=== PATIENT | male | born 1935 | race Caucasian/White ===

== ENCOUNTER → 2023-02-05 | Outpatient (CLI) | payer MEDICARE ==
[2023-02-05 15:20] LABS: Basophils # (auto) 0.1 10 ^3/uL (0-0.2); Basophils % (auto) 1.1 % (0.0-2.0); Eosinophils # (auto) 0.4 10 ^3/uL (0-0.8); Eosinophils % (auto) 3.3 % (0.0-7.0); Hematocrit 50.2 % (41.0-53.0); Hemoglobin 16.9 g/dL (13.5-17.5); Lymphocytes # (auto) 4.1 10 ^3/uL (0.4-5.4); Lymphocytes % (auto) 37.7 % (10.0-50.0); Mean Corpuscular Hemoglobin 30.3 pg (28.0-32.0); Mean Corpuscular Hgb Conc. 33.7 g/dL (32.0-36.0); Mean Corpuscular Volume 89.8 fL (80.0-100.0); Monocytes # (auto) 0.6 10 ^3/uL (0-1.3); Neutrophils # (auto) 5.6 10 ^3/uL (1.6-8.6); Neutrophils % (auto) 51.9 % (37.0-80.0); Nucleated Red Blood Cells % 0.2 %; Red Blood Cells 5.59 10^6/uL (4.5-5.90); Red Cell Distribution Width 14.2 % (11.8-14.3); White Blood Cell 10.8 10^3/uL (4.4-10.8)
[2023-02-05 15:41] LABS: Albumin 3.8 g/dL (3.4-5.0); Calcium 9.4 mg/dL (8.5-10.1)
[2023-02-05 15:46] LABS: BUN/Creatinine Ratio 14.1 (10.0-20.0); Bilirubin, Total 1.2 mg/dL (0.2-1.0); Total Protein 8.4 g/dL (6.4-8.2)
== END | disposition home or self-care (01) ==
LOC: LAB 14:41
PROVIDERS: ATTEND Internal Medicine
DX: N18.31 Chronic kidney disease, stage 3a (principal); E66.01 Morbid (severe) obesity due to excess calories; N40.0 Benign prostatic hyperplasia without lower urinary tract symptoms; I12.9 Hypertensive chronic kidney disease with stage 1 through stage 4 chronic kidney disease, or unspecified chronic kidney disease
CPT/HCPCS: 36415; 80053; 80061; 84153; 84154; 84443; 85025

== ENCOUNTER 2023-03-24 10:36 | Inpatient (IN) | payer OTHER ==
[~2023-03-24] VITALS: Ht 167.6 cm; Wt 79.6 kg
[2023-03-24 11:08] LABS: Basophils # (auto) 0.1 10 ^3/uL (0-0.2); Basophils % (auto) 0.9 % (0.0-2.0); Eosinophils # (auto) 0.4 10 ^3/uL (0-0.8); Hematocrit 48.1 % (41.0-53.0); Hemoglobin 16.3 g/dL (13.5-17.5); Lymphocytes # (auto) 2.8 10 ^3/uL (0.4-5.4); Lymphocytes % (auto) 22.9 % (10.0-50.0); Mean Corpuscular Hemoglobin 30.2 pg (28.0-32.0); Mean Corpuscular Hgb Conc. 33.9 g/dL (32.0-36.0); Mean Corpuscular Volume 89.2 fL (80.0-100.0); Monocytes # (auto) 1.1 10 ^3/uL (0-1.3); Neutrophils # (auto) 7.9 10 ^3/uL (1.6-8.6); Neutrophils % (auto) 64.2 % (37.0-80.0); Nucleated Red Blood Cells % 0.2 %; Red Blood Cells 5.39 10^6/uL (4.5-5.90); Red Cell Distribution Width 13.5 % (11.8-14.3); White Blood Cell 12.3 10^3/uL (4.4-10.8)
[2023-03-24 11:20] LABS: Albumin 3.4 g/dL (3.4-5.0); Calcium 8.8 mg/dL (8.5-10.1); Magnesium 2.5 mg/dL (1.6-2.6)
[2023-03-24 11:23] LABS: BUN/Creatinine Ratio 11.8 (10.0-20.0); Bilirubin, Total 0.9 mg/dL (0.2-1.0); Total Protein 7.4 g/dL (6.4-8.2)
[2023-03-24 11:51] LABS: INR 1.12 (0.9-1.15); Partial Thromboplastin Time 30.3 sec (24.6-33.4)
[2023-03-24] MEDS ORDERED: FUROSEMIDE 40 MG/4 ML VIAL IV ONE (13:15)
[2023-03-24] MEDS ORDERED: CLIN-203 PO (13:39)
[2023-03-24] MEDS ORDERED: MAX5OPS EACHEYE (13:39)
[2023-03-24] MEDS ORDERED: FUR20T PO (13:39)
[2023-03-24] MEDS ORDERED: NITROGLYCERIN 0.4 MG SL TAB SL PRN (14:00)
[2023-03-24] MEDS ORDERED: MORPHINE SULFATE INJ 2 MG/ml SYRG IV PRN (14:00)
[2023-03-24] MEDS ORDERED: ASPirin 325 MG TAB PO ONE (14:00)
[2023-03-24 15:05] LABS: Cholesterol 101 mg/dL (< 200); HDL Cholesterol 31 mg/dL (40-59); LDL Cholesterol 68 mg/dL (< 100); Triglycerides 60 mg/dL (< 150)
[2023-03-24] MEDS: ATORVASTATIN 20 MG TAB PO SCH (22:00)
[2023-03-24 22:22] VITALS: BP 106/60
[2023-03-25] VITALS (12 sets, daily range): BP systolic 101–116; BP diastolic 57–68
[2023-03-25 05:54] LABS: Basophils # (auto) 0.1 10 ^3/uL (0-0.2); Basophils % (auto) 0.6 % (0.0-2.0); Eosinophils # (auto) 0.3 10 ^3/uL (0-0.8); Eosinophils % (auto) 2.2 % (0.0-7.0); Hematocrit 42.4 % (41.0-53.0); Hemoglobin 14.5 g/dL (13.5-17.5); Lymphocytes # (auto) 1.2 10 ^3/uL (0.4-5.4); Lymphocytes % (auto) 9.6 % (10.0-50.0); Mean Corpuscular Hemoglobin 30.4 pg (28.0-32.0); Mean Corpuscular Hgb Conc. 34.3 g/dL (32.0-36.0); Mean Corpuscular Volume 88.5 fL (80.0-100.0); Monocytes # (auto) 0.9 10 ^3/uL (0-1.3); Monocytes % (auto) 7.3 % (0.0-12.0); Neutrophils # (auto) 9.7 10 ^3/uL (1.6-8.6); Neutrophils % (auto) 80.3 % (37.0-80.0); Nucleated Red Blood Cells % 0.1 %; Red Blood Cells 4.79 10^6/uL (4.5-5.90); Red Cell Distribution Width 13.5 % (11.8-14.3); White Blood Cell 12.1 10^3/uL (4.4-10.8)
[2023-03-25 06:10] LABS: Albumin 2.8 g/dL (3.4-5.0); Calcium 8.3 mg/dL (8.5-10.1); Potassium 4.6 mmol/L (3.5-5.1)
[2023-03-25 06:15] LABS: BUN/Creatinine Ratio 19.2 (10.0-20.0); Total Protein 6.3 g/dL (6.4-8.2)
[2023-03-25] MEDS ORDERED: ADENOSINE 69 MG in GIVE UN-DILUTED 0 ML IV STA (08:25)
[2023-03-25] MEDS ORDERED: IOHEXOL 350 MG/ML 100ML IJ ONE (09:33)
[2023-03-25] MEDS ORDERED: PIPERACILLIN-TAZOB 3.375GM 100 ML IV ONE (10:45)
[2023-03-25] MEDS ORDERED: methylPREDNISolone SOD SUCC 40 MG/ML VL IM ONE (10:45)
[2023-03-25] MEDS: ENOXAPARIN SOD 40 MG/0.4 ML SYRINGE SC SCH (11:14)
[2023-03-25] MEDS: ASPirin 81 mg TAB PO SCH (11:14)
[2023-03-25] MEDS: FUROSEMIDE 20 MG/2 ML VIAL IV SCH ×2 (11:17→16:08)
[2023-03-25] MEDS: PIPERACILLIN-TAZOB 3.375GM 100 ML IV SCH (16:08)
[2023-03-25] MEDS: ATORVASTATIN 20 MG TAB PO SCH (21:31)
[2023-03-26] VITALS (19 sets, daily range): BP systolic 96–119; BP diastolic 47–69
[2023-03-26] MEDS: PIPERACILLIN-TAZOB 3.375GM 100 ML IV SCH ×3 (02:26→19:55)
[2023-03-26] MEDS: FUROSEMIDE 20 MG/2 ML VIAL IV SCH ×2 (05:38→18:01)
[2023-03-26 07:07] LABS: Urine Bacteria NONE SEEN /hpf (None Seen); Urine Blood 3+ /uL (Negative); Urine Specific Gravity 1.008 (1.001-1.035); Urine WBC 2 /hpf (0 - 3)
[2023-03-26] MEDS: methylPREDNISolone SOD SUCC 40 MG/ML VL IV SCH (10:00)
[2023-03-26] MEDS ORDERED: guaiFENesin-DM 100/10mg/5ml SYR PO ONE (10:15)
[2023-03-26] MEDS ORDERED: LIDOCAINE 2% JELLY 11ml (GLYDO) UR ONE (11:45)
[2023-03-26] MEDS: ASPirin 81 mg TAB PO SCH (12:02)
[2023-03-26] MEDS: ENOXAPARIN SOD 40 MG/0.4 ML SYRINGE SC SCH (12:03)
[2023-03-26] MEDS: PHENAZOPYRIDINE HCL 100 MG TAB PO SCH (18:00)
[2023-03-26] MEDS: ATORVASTATIN 20 MG TAB PO SCH (21:40)
[2023-03-27] VITALS (25 sets, daily range): BP systolic 92–120; BP diastolic 46–73
[2023-03-27] MEDS: PIPERACILLIN-TAZOB 3.375GM 100 ML IV SCH (03:18)
[2023-03-27 04:51] LABS: Basophils # (auto) 0.1 10 ^3/uL (0-0.2); Basophils % (auto) 0.7 % (0.0-2.0); Eosinophils # (auto) 0.3 10 ^3/uL (0-0.8); Eosinophils % (auto) 1.7 % (0.0-7.0); Hematocrit 44.4 % (41.0-53.0); Hemoglobin 15.4 g/dL (13.5-17.5); Lymphocytes # (auto) 2.4 10 ^3/uL (0.4-5.4); Lymphocytes % (auto) 15.8 % (10.0-50.0); Mean Corpuscular Hemoglobin 30.4 pg (28.0-32.0); Mean Corpuscular Hgb Conc. 34.7 g/dL (32.0-36.0); Mean Corpuscular Volume 87.6 fL (80.0-100.0); Monocytes # (auto) 1.2 10 ^3/uL (0-1.3); Monocytes % (auto) 8.1 % (0.0-12.0); Neutrophils # (auto) 11.3 10 ^3/uL (1.6-8.6); Neutrophils % (auto) 73.7 % (37.0-80.0); Nucleated Red Blood Cells % 0.1 %; Red Blood Cells 5.07 10^6/uL (4.5-5.90); Red Cell Distribution Width 13.7 % (11.8-14.3); White Blood Cell 15.4 10^3/uL (4.4-10.8)
[2023-03-27 05:10] LABS: BUN/Creatinine Ratio 27.6 (10.0-20.0); Calcium 8.8 mg/dL (8.5-10.1); Potassium 3.4 mmol/L (3.5-5.1)
[2023-03-27] MEDS: FUROSEMIDE 20 MG/2 ML VIAL IV SCH ×2 (05:15→18:52)
[2023-03-27] MEDS: guaiFENesin-DM 100/10mg/5ml SYR PO PRN (05:20)
[2023-03-27] MEDS: ENOXAPARIN SOD 40 MG/0.4 ML SYRINGE SC SCH (09:02)
[2023-03-27] MEDS: PHENAZOPYRIDINE HCL 100 MG TAB PO SCH ×3 (09:03→18:51)
[2023-03-27] MEDS: ASPirin 81 mg TAB PO SCH (09:03)
[2023-03-27] MEDS: methylPREDNISolone SOD SUCC 40 MG/ML VL IV SCH (09:40)
[2023-03-27] MEDS ORDERED: POTASSIUM EFFERVESENT TAB 25 MEQ PO ONE (10:15)
[2023-03-27] MEDS: ALBUTEROL SULF 2.5 MG/0.5ML(0.5%) NEB SOLN NEB PRN (12:21)
[2023-03-27] MEDS: MEROPENEM 1GM IVPB 100 ML IV SCH ×2 (14:26→21:06)
[2023-03-27] MEDS: ATORVASTATIN 20 MG TAB PO SCH (21:03)
[2023-03-27] MEDS: LINEZOLID 600MG/300ML 300 ML IV SCH (21:11)
[2023-03-28] VITALS (25 sets, daily range): BP systolic 95–135; BP diastolic 52–77
[2023-03-28 05:01] LABS: Basophils # (auto) 0 10 ^3/uL (0-0.2); Basophils % (auto) 0.2 % (0.0-2.0); Eosinophils # (auto) 0 10 ^3/uL (0-0.8); Eosinophils % (auto) 0.2 % (0.0-7.0); Hematocrit 43.5 % (41.0-53.0); Hemoglobin 15.1 g/dL (13.5-17.5); Lymphocytes # (auto) 2.7 10 ^3/uL (0.4-5.4); Lymphocytes % (auto) 18.7 % (10.0-50.0); Mean Corpuscular Hemoglobin 30.7 pg (28.0-32.0); Mean Corpuscular Hgb Conc. 34.8 g/dL (32.0-36.0); Mean Corpuscular Volume 88.1 fL (80.0-100.0); Monocytes # (auto) 1.3 10 ^3/uL (0-1.3); Monocytes % (auto) 8.7 % (0.0-12.0); Neutrophils # (auto) 10.6 10 ^3/uL (1.6-8.6); Neutrophils % (auto) 72.2 % (37.0-80.0); Nucleated Red Blood Cells % 0.1 %; Red Blood Cells 4.94 10^6/uL (4.5-5.90); Red Cell Distribution Width 13.5 % (11.8-14.3); White Blood Cell 14.7 10^3/uL (4.4-10.8)
[2023-03-28 05:19] LABS: BUN/Creatinine Ratio 25.6 (10.0-20.0); Calcium 8.6 mg/dL (8.5-10.1); Potassium 4.2 mmol/L (3.5-5.1)
[2023-03-28] MEDS: MEROPENEM 1GM IVPB 100 ML IV SCH ×3 (05:57→22:31)
[2023-03-28] MEDS: FUROSEMIDE 20 MG/2 ML VIAL IV SCH ×2 (05:58→17:20)
[2023-03-28] MEDS: PHENAZOPYRIDINE HCL 100 MG TAB PO SCH ×3 (08:47→17:20)
[2023-03-28] MEDS: LINEZOLID 600MG/300ML 300 ML IV SCH ×2 (08:47→22:31)
[2023-03-28] MEDS: ASPirin 81 mg TAB PO SCH (08:47)
[2023-03-28] MEDS: ENOXAPARIN SOD 40 MG/0.4 ML SYRINGE SC SCH (08:47)
[2023-03-28] MEDS: methylPREDNISolone SOD SUCC 40 MG/ML VL IV SCH (08:47)
[2023-03-28] MEDS: ALBUTEROL SULF 2.5 MG/0.5ML(0.5%) NEB SOLN NEB PRN (12:40)
[2023-03-29] VITALS (22 sets, daily range): BP systolic 96–133; BP diastolic 46–74
[2023-03-29] MEDS: ATORVASTATIN 20 MG TAB PO SCH ×2 (00:04→22:15)
[2023-03-29 05:26] LABS: Basophils # (auto) 0.1 10 ^3/uL (0-0.2); Basophils % (auto) 0.5 % (0.0-2.0); Eosinophils # (auto) 0 10 ^3/uL (0-0.8); Eosinophils % (auto) 0.2 % (0.0-7.0); Hemoglobin 15.9 g/dL (13.5-17.5); Lymphocytes # (auto) 2.9 10 ^3/uL (0.4-5.4); Lymphocytes % (auto) 17.7 % (10.0-50.0); Mean Corpuscular Hemoglobin 30.8 pg (28.0-32.0); Mean Corpuscular Hgb Conc. 35.3 g/dL (32.0-36.0); Mean Corpuscular Volume 87.4 fL (80.0-100.0); Monocytes # (auto) 1.2 10 ^3/uL (0-1.3); Monocytes % (auto) 7.5 % (0.0-12.0); Neutrophils # (auto) 12.2 10 ^3/uL (1.6-8.6); Neutrophils % (auto) 74.1 % (37.0-80.0); Nucleated Red Blood Cells % 0.1 %; Red Blood Cells 5.14 10^6/uL (4.5-5.90); Red Cell Distribution Width 13.5 % (11.8-14.3); White Blood Cell 16.5 10^3/uL (4.4-10.8)
[2023-03-29 05:44] LABS: BUN/Creatinine Ratio 29.7 (10.0-20.0); Calcium 8.9 mg/dL (8.5-10.1); Potassium 4.1 mmol/L (3.5-5.1)
[2023-03-29] MEDS: FUROSEMIDE 20 MG/2 ML VIAL IV SCH ×2 (07:55→17:58)
[2023-03-29] MEDS: MEROPENEM 1GM IVPB 100 ML IV SCH ×2 (07:55→14:05)
[2023-03-29] MEDS: ENOXAPARIN SOD 40 MG/0.4 ML SYRINGE SC SCH (08:38)
[2023-03-29] MEDS: LINEZOLID 600MG/300ML 300 ML IV SCH ×2 (08:39→22:12)
[2023-03-29] MEDS: PHENAZOPYRIDINE HCL 100 MG TAB PO SCH ×3 (08:39→17:58)
[2023-03-29] MEDS: ASPirin 81 mg TAB PO SCH (08:39)
[2023-03-29] MEDS: methylPREDNISolone SOD SUCC 40 MG/ML VL IV SCH (09:36)
[2023-03-29] MEDS ORDERED: LACTULOSE 20Gm/30ML SOLN PO PRN (13:00)
[2023-03-29] MEDS: DOCUSATE SOD 100 MG CAP PO PRN (14:11)
[2023-03-30] VITALS (9 sets, daily range): BP systolic 99–121; BP diastolic 61–71
[2023-03-30] MEDS: MEROPENEM 1GM IVPB 100 ML IV SCH ×4 (00:38→22:28)
[2023-03-30 05:01] LABS: Basophils # (auto) 0.1 10 ^3/uL (0-0.2); Basophils % (auto) 0.4 % (0.0-2.0); Eosinophils # (auto) 0 10 ^3/uL (0-0.8); Eosinophils % (auto) 0.3 % (0.0-7.0); Hematocrit 43.8 % (41.0-53.0); Hemoglobin 15.1 g/dL (13.5-17.5); Lymphocytes % (auto) 16.2 % (10.0-50.0); Mean Corpuscular Hemoglobin 30.4 pg (28.0-32.0); Mean Corpuscular Hgb Conc. 34.5 g/dL (32.0-36.0); Mean Corpuscular Volume 88.2 fL (80.0-100.0); Monocytes # (auto) 1.3 10 ^3/uL (0-1.3); Monocytes % (auto) 6.9 % (0.0-12.0); Neutrophils # (auto) 13.9 10 ^3/uL (1.6-8.6); Neutrophils % (auto) 76.2 % (37.0-80.0); Nucleated Red Blood Cells % 0.1 %; Red Blood Cells 4.97 10^6/uL (4.5-5.90); Red Cell Distribution Width 13.1 % (11.8-14.3); White Blood Cell 18.2 10^3/uL (4.4-10.8)
[2023-03-30 05:08] LABS: Albumin 2.6 g/dL (3.4-5.0); Magnesium 2.5 mg/dL (1.6-2.6); Potassium 3.9 mmol/L (3.5-5.1)
[2023-03-30 05:11] LABS: BUN/Creatinine Ratio 28.9 (10.0-20.0); Bilirubin, Total 0.5 mg/dL (0.2-1.0); Total Protein 6.9 g/dL (6.4-8.2)
[2023-03-30] MEDS: FUROSEMIDE 20 MG/2 ML VIAL IV SCH ×2 (05:20→18:44)
[2023-03-30] MEDS: PHENAZOPYRIDINE HCL 100 MG TAB PO SCH ×3 (09:28→18:45)
[2023-03-30] MEDS: ENOXAPARIN SOD 40 MG/0.4 ML SYRINGE SC SCH (09:28)
[2023-03-30] MEDS: methylPREDNISolone SOD SUCC 40 MG/ML VL IV SCH (09:29)
[2023-03-30] MEDS: LINEZOLID 600MG/300ML 300 ML IV SCH ×2 (09:29→22:28)
[2023-03-30] MEDS: ASPirin 81 mg TAB PO SCH (09:29)
[2023-03-30] MEDS: ACETYLCYSTEINE 10 %(100MG/ML) SOL 4ML NEB SCH ×2 (14:26→22:34)
[2023-03-30] MEDS: ALBUTEROL SULF 2.5 MG/0.5ML(0.5%) NEB SOLN NEB PRN ×2 (14:26→22:34)
[2023-03-30] MEDS: IPRATROPIUM BROM 0.5 MG/2.5ML INH SOL NEB PRN ×2 (14:26→22:34)
[2023-03-30] MEDS ORDERED: ALBUMIN 25% 100 ML IV ONE (21:00)
[2023-03-30] MEDS: ATORVASTATIN 20 MG TAB PO SCH (22:27)
[2023-03-31] MEDS: FUROSEMIDE 20 MG/2 ML VIAL IV SCH ×2 (05:46→18:35)
[2023-03-31] MEDS: MEROPENEM 1GM IVPB 100 ML IV SCH ×2 (05:46→14:52)
[2023-03-31 06:00] VITALS: BP 102/58
[2023-03-31] MEDS: ALBUTEROL SULF 2.5 MG/0.5ML(0.5%) NEB SOLN NEB PRN ×3 (07:03→22:11)
[2023-03-31] MEDS: IPRATROPIUM BROM 0.5 MG/2.5ML INH SOL NEB PRN ×3 (07:03→22:11)
[2023-03-31] MEDS: ACETYLCYSTEINE 10 %(100MG/ML) SOL 4ML NEB SCH ×3 (07:03→22:11)
[2023-03-31 09:00] VITALS: BP 110/58
[2023-03-31] MEDS: ASPirin 81 mg TAB PO SCH (10:06)
[2023-03-31] MEDS: PHENAZOPYRIDINE HCL 100 MG TAB PO SCH ×3 (10:06→18:35)
[2023-03-31] MEDS: LINEZOLID 600MG/300ML 300 ML IV SCH ×2 (10:06→21:59)
[2023-03-31] MEDS: methylPREDNISolone SOD SUCC 40 MG/ML VL IV SCH (10:07)
[2023-03-31] MEDS: ENOXAPARIN SOD 40 MG/0.4 ML SYRINGE SC SCH (10:07)
[2023-03-31 13:02] VITALS: BP 111/58
[2023-03-31 17:00] VITALS: BP 115/68
[2023-03-31] MEDS: ATORVASTATIN 20 MG TAB PO SCH (21:58)
[2023-03-31 22:00] VITALS: BP 116/61
[2023-04-01] MEDS: MEROPENEM 1GM IVPB 100 ML IV SCH ×4 (01:08→23:45)
[2023-04-01] MEDS: guaiFENesin-DM 100/10mg/5ml SYR PO PRN ×3 (01:14→21:38)
[2023-04-01 05:00] VITALS: BP 123/73
[2023-04-01] MEDS: FUROSEMIDE 20 MG/2 ML VIAL IV SCH ×2 (05:36→17:49)
[2023-04-01 06:13] LABS: Basophils # (auto) 0 10 ^3/uL (0-0.2); Basophils % (auto) 0.1 % (0.0-2.0); Eosinophils # (auto) 0 10 ^3/uL (0-0.8); Eosinophils % (auto) 0.1 % (0.0-7.0); Hematocrit 42.1 % (41.0-53.0); Hemoglobin 14.5 g/dL (13.5-17.5); Lymphocytes # (auto) 2.2 10 ^3/uL (0.4-5.4); Lymphocytes % (auto) 12.3 % (10.0-50.0); Mean Corpuscular Hemoglobin 29.8 pg (28.0-32.0); Mean Corpuscular Hgb Conc. 34.4 g/dL (32.0-36.0); Mean Corpuscular Volume 86.7 fL (80.0-100.0); Monocytes # (auto) 1.2 10 ^3/uL (0-1.3); Monocytes % (auto) 6.9 % (0.0-12.0); Neutrophils # (auto) 14.4 10 ^3/uL (1.6-8.6); Neutrophils % (auto) 80.6 % (37.0-80.0); Nucleated Red Blood Cells % 0.4 %; Red Blood Cells 4.86 10^6/uL (4.5-5.90); Red Cell Distribution Width 13.3 % (11.8-14.3); White Blood Cell 17.8 10^3/uL (4.4-10.8)
[2023-04-01 06:30] LABS: BUN/Creatinine Ratio 30.3 (10.0-20.0); Calcium 8.7 mg/dL (8.5-10.1); Potassium 3.7 mmol/L (3.5-5.1)
[2023-04-01] MEDS: IPRATROPIUM BROM 0.5 MG/2.5ML INH SOL NEB PRN ×3 (06:42→21:54)
[2023-04-01] MEDS: ALBUTEROL SULF 2.5 MG/0.5ML(0.5%) NEB SOLN NEB PRN ×3 (06:42→21:54)
[2023-04-01] MEDS: ACETYLCYSTEINE 10 %(100MG/ML) SOL 4ML NEB SCH ×3 (06:43→21:54)
[2023-04-01 09:00] VITALS: BP 116/69
[2023-04-01] MEDS: ASPirin 81 mg TAB PO SCH (10:15)
[2023-04-01] MEDS: methylPREDNISolone SOD SUCC 40 MG/ML VL IV SCH (10:15)
[2023-04-01] MEDS: ENOXAPARIN SOD 40 MG/0.4 ML SYRINGE SC SCH (10:17)
[2023-04-01] MEDS: LINEZOLID 600MG/300ML 300 ML IV SCH ×2 (10:17→21:32)
[2023-04-01] MEDS: PHENAZOPYRIDINE HCL 100 MG TAB PO SCH ×3 (10:23→18:00)
[2023-04-01] MEDS: ACETAMINOPHEN 325 MG TAB PO PRN (12:00)
[2023-04-01 13:00] VITALS: BP 123/67
[2023-04-01 17:00] VITALS: BP 122/71
[2023-04-01] MEDS: ATORVASTATIN 20 MG TAB PO SCH (21:32)
[2023-04-01 22:00] VITALS: BP 137/72
[2023-04-02 05:00] VITALS: BP 129/63
[2023-04-02] MEDS: FUROSEMIDE 20 MG/2 ML VIAL IV SCH ×2 (06:11→18:16)
[2023-04-02] MEDS: ACETYLCYSTEINE 10 %(100MG/ML) SOL 4ML NEB SCH ×3 (07:26→22:17)
[2023-04-02] MEDS: IPRATROPIUM BROM 0.5 MG/2.5ML INH SOL NEB PRN ×3 (07:26→22:17)
[2023-04-02] MEDS: ALBUTEROL SULF 2.5 MG/0.5ML(0.5%) NEB SOLN NEB PRN ×3 (07:26→22:17)
[2023-04-02] MEDS: MEROPENEM 1GM IVPB 100 ML IV SCH ×3 (07:58→23:51)
[2023-04-02] MEDS: PHENAZOPYRIDINE HCL 100 MG TAB PO SCH ×3 (08:00→18:11)
[2023-04-02] MEDS: ACETAMINOPHEN 325 MG TAB PO PRN ×2 (08:08→21:17)
[2023-04-02 09:00] VITALS: BP 122/67
[2023-04-02] MEDS: methylPREDNISolone SOD SUCC 40 MG/ML VL IV SCH (10:09)
[2023-04-02] MEDS: ASPirin 81 mg TAB PO SCH (10:10)
[2023-04-02] MEDS: ENOXAPARIN SOD 40 MG/0.4 ML SYRINGE SC SCH (10:10)
[2023-04-02 10:39] VITALS: BP 122/67
[2023-04-02] MEDS: LINEZOLID 600MG/300ML 300 ML IV SCH ×2 (11:00→21:17)
[2023-04-02 13:00] VITALS: BP 119/52
[2023-04-02 17:00] VITALS: BP 112/66
[2023-04-02] MEDS: guaiFENesin-DM 100/10mg/5ml SYR PO PRN (21:16)
[2023-04-02] MEDS: ATORVASTATIN 20 MG TAB PO SCH (21:17)
[2023-04-02 22:00] VITALS: BP 113/69
[2023-04-03] MEDS: guaiFENesin-DM 100/10mg/5ml SYR PO PRN (04:22)
[2023-04-03 05:00] VITALS: BP 127/86
[2023-04-03] MEDS: FUROSEMIDE 20 MG/2 ML VIAL IV SCH ×2 (06:09→17:47)
[2023-04-03] MEDS: IPRATROPIUM BROM 0.5 MG/2.5ML INH SOL NEB PRN ×3 (06:45→19:41)
[2023-04-03] MEDS: ACETYLCYSTEINE 10 %(100MG/ML) SOL 4ML NEB SCH ×3 (06:45→19:41)
[2023-04-03] MEDS: ALBUTEROL SULF 2.5 MG/0.5ML(0.5%) NEB SOLN NEB PRN ×3 (06:45→19:41)
[2023-04-03 08:45] VITALS: BP 122/59
[2023-04-03] MEDS: ENOXAPARIN SOD 40 MG/0.4 ML SYRINGE SC SCH (08:51)
[2023-04-03] MEDS: PHENAZOPYRIDINE HCL 100 MG TAB PO SCH ×3 (08:51→17:48)
[2023-04-03] MEDS: ASPirin 81 mg TAB PO SCH (08:51)
[2023-04-03] MEDS: methylPREDNISolone SOD SUCC 40 MG/ML VL IV SCH (08:51)
[2023-04-03] MEDS: MEROPENEM 1GM IVPB 100 ML IV SCH ×2 (08:52→16:43)
[2023-04-03] MEDS: LINEZOLID 600MG/300ML 300 ML IV SCH ×2 (12:14→21:34)
[2023-04-03 13:00] VITALS: BP 128/72
[2023-04-03 17:11] VITALS: BP 120/67
[2023-04-03] MEDS: ATORVASTATIN 20 MG TAB PO SCH (21:34)
[2023-04-03 22:00] VITALS: BP 111/71
[2023-04-03] MEDS: ACETAMINOPHEN 325 MG TAB PO PRN (22:51)
[2023-04-04] MEDS: MEROPENEM 1GM IVPB 100 ML IV SCH ×3 (00:08→17:14)
[2023-04-04 04:55] VITALS: BP 102/52
[2023-04-04 05:40] LABS: Basophils # (auto) 0 10 ^3/uL (0-0.2); Basophils % (auto) 0.1 % (0.0-2.0); Eosinophils # (auto) 0 10 ^3/uL (0-0.8); Eosinophils % (auto) 0.2 % (0.0-7.0); Hematocrit 42.7 % (41.0-53.0); Hemoglobin 14.6 g/dL (13.5-17.5); Lymphocytes # (auto) 2.6 10 ^3/uL (0.4-5.4); Lymphocytes % (auto) 14.4 % (10.0-50.0); Mean Corpuscular Hemoglobin 29.9 pg (28.0-32.0); Mean Corpuscular Hgb Conc. 34.3 g/dL (32.0-36.0); Mean Corpuscular Volume 87.3 fL (80.0-100.0); Monocytes # (auto) 1.2 10 ^3/uL (0-1.3); Monocytes % (auto) 6.8 % (0.0-12.0); Neutrophils # (auto) 14.2 10 ^3/uL (1.6-8.6); Neutrophils % (auto) 78.5 % (37.0-80.0); Red Blood Cells 4.89 10^6/uL (4.5-5.90); Red Cell Distribution Width 13.3 % (11.8-14.3)
[2023-04-04 06:00] LABS: BUN/Creatinine Ratio 33.3 (10.0-20.0); Calcium 8.5 mg/dL (8.5-10.1); Potassium 4.4 mmol/L (3.5-5.1)
[2023-04-04] MEDS: FUROSEMIDE 20 MG/2 ML VIAL IV SCH ×2 (06:04→18:14)
[2023-04-04] MEDS: ACETAMINOPHEN 325 MG TAB PO PRN (06:09)
[2023-04-04] MEDS: DOCUSATE SOD 100 MG CAP PO PRN (06:09)
[2023-04-04] MEDS: IPRATROPIUM BROM 0.5 MG/2.5ML INH SOL NEB PRN (07:28)
[2023-04-04] MEDS: ALBUTEROL SULF 2.5 MG/0.5ML(0.5%) NEB SOLN NEB PRN (07:28)
[2023-04-04] MEDS: ACETYLCYSTEINE 10 %(100MG/ML) SOL 4ML NEB SCH (07:28)
[2023-04-04] MEDS: ENOXAPARIN SOD 40 MG/0.4 ML SYRINGE SC SCH (08:25)
[2023-04-04] MEDS: PHENAZOPYRIDINE HCL 100 MG TAB PO SCH ×3 (08:25→18:13)
[2023-04-04] MEDS: ASPirin 81 mg TAB PO SCH (08:25)
[2023-04-04] MEDS: methylPREDNISolone SOD SUCC 40 MG/ML VL IV SCH (08:25)
[2023-04-04 09:00] VITALS: BP 117/66
[2023-04-04] MEDS ORDERED: LEVO750T40 PO (10:34)
[2023-04-04] MEDS ORDERED: ATOR20TA50 PO (10:34)
[2023-04-04] MEDS ORDERED: PRED20TA2 PO (10:34)
[2023-04-04] MEDS ORDERED: ASPI-325 PO (10:34)
[2023-04-04 13:00] VITALS: BP 131/68
[2023-04-04] MEDS: LINEZOLID 600MG/300ML 300 ML IV SCH (13:40)
[2023-04-04 17:00] VITALS: BP 116/55
[2023-04-04 17:59] VITALS: BP 116/55
== END 2023-04-04 20:35 | disposition home health service (06) | DRG 193 ==
LOC: ER 10:36 → TELE 13:58 → TELE-WESTW 23:19 → DOU IN ICU 03-25 12:46 → TELE-EAST 03-30 06:11
PROVIDERS: ADMIT Nurse Practitioner Family; ATTEND Internal Medicine Pulmonary Disease
PROC: 05HB33Z Insertion of Infusion Device into Right Basilic Vein, Percutaneous Approach (ICD-10-PCS; principal; 2023-03-25)
PROC: B54MZZA Ultrasonography of Right Upper Extremity Veins, Guidance (ICD-10-PCS; 2023-03-25)
DX: J18.9 Pneumonia, unspecified organism (principal); I50.33 Acute on chronic diastolic (congestive) heart failure; J96.01 Acute respiratory failure with hypoxia; J47.1 Bronchiectasis with (acute) exacerbation; J47.0 Bronchiectasis with acute lower respiratory infection; E66.9 Obesity, unspecified; Z20.822 Contact with and (suspected) exposure to COVID-19; I27.20 Pulmonary hypertension, unspecified; I20.9 Angina pectoris, unspecified; Z88.1 Allergy status to other antibiotic agents; Z87.891 Personal history of nicotine dependence; Z88.8 Allergy status to other drugs, medicaments and biological substances; Z68.29 Body mass index [BMI] 29.0-29.9, adult
CPT/HCPCS: 36415; 36600; 71045; 71250; 71275; 80048; 80053; 80061; 81001; 82805; 83735; 83880; 84443; 84484; 85025; 85379; 85610; 85730; 87040; 87070; 87077; 87081; 87186; 87205; 87804; 93005; 93306; 93970; 94640; 97110; 97116; 97163; 97530; G0378; J0153; J2185; J2543; P9047

== ENCOUNTER → 2023-06-11 | Outpatient (CLI) | payer OTHER ==
[~2023-06-11] MED LIST: ASPI-325 PO; ATOR20TA50 PO; FUR20T PO; LEVO750T40 PO; MAX5OPS EACHEYE; PRED20TA2 PO
[2023-06-11 14:33] LABS: Basophils # (auto) 0.1 10 ^3/uL (0-0.2); Basophils % (auto) 1.2 % (0.0-2.0); Eosinophils # (auto) 0.3 10 ^3/uL (0-0.8); Eosinophils % (auto) 3.1 % (0.0-7.0); Hematocrit 44.6 % (41.0-53.0); Hemoglobin 14.8 g/dL (13.5-17.5); Lymphocytes # (auto) 2.8 10 ^3/uL (0.4-5.4); Lymphocytes % (auto) 25.9 % (10.0-50.0); Mean Corpuscular Hemoglobin 29.2 pg (28.0-32.0); Mean Corpuscular Hgb Conc. 33.2 g/dL (32.0-36.0); Mean Corpuscular Volume 87.8 fL (80.0-100.0); Monocytes # (auto) 0.9 10 ^3/uL (0-1.3); Monocytes % (auto) 8.2 % (0.0-12.0); Neutrophils # (auto) 6.8 10 ^3/uL (1.6-8.6); Neutrophils % (auto) 61.6 % (37.0-80.0); Nucleated Red Blood Cells % 0.1 %; Red Blood Cells 5.08 10^6/uL (4.5-5.90)
== END | disposition home or self-care (01) ==
LOC: LAB 14:07
PROVIDERS: ATTEND Internal Medicine
DX: D72.829 Elevated white blood cell count, unspecified (principal)
CPT/HCPCS: 36415; 85025

== ENCOUNTER 2023-06-26 13:28 | Inpatient (IN) | payer OTHER ==
[~2023-06-26] VITALS: Ht 165.1 cm; Wt 69.9 kg
[2023-06-26] MEDS ORDERED: FUROSEMIDE 20 MG/2 ML VIAL IV ONE ×2 (14:30→17:45)
[2023-06-26] MEDS ORDERED: AZITHROMYCIN 500MG/ 250ML 250 ML IV ONE ×2 (14:30→17:45)
[2023-06-26] MEDS ORDERED: cefTRIAXone 1GM/50ML D5W 50 ML IV ONE ×2 (14:30→17:45)
[2023-06-26 14:53] VITALS: PULSE 79; RESP 12; O2SAT 96
[2023-06-26 14:57] LABS: Basophils # (auto) 0.1 10 ^3/uL (0-0.2); Basophils % (auto) 0.9 % (0.0-2.0); Eosinophils # (auto) 0.4 10 ^3/uL (0-0.8); Eosinophils % (auto) 4.1 % (0.0-7.0); Hematocrit 46.7 % (41.0-53.0); Hemoglobin 15.5 g/dL (13.5-17.5); Lymphocytes # (auto) 2.2 10 ^3/uL (0.4-5.4); Lymphocytes % (auto) 23.9 % (10.0-50.0); Mean Corpuscular Hgb Conc. 33.1 g/dL (32.0-36.0); Mean Corpuscular Volume 87.8 fL (80.0-100.0); Monocytes # (auto) 0.8 10 ^3/uL (0-1.3); Monocytes % (auto) 8.2 % (0.0-12.0); Neutrophils # (auto) 5.8 10 ^3/uL (1.6-8.6); Neutrophils % (auto) 62.9 % (37.0-80.0); Nucleated Red Blood Cells % 0.2 %; Red Blood Cells 5.32 10^6/uL (4.5-5.90); Red Cell Distribution Width 14.7 % (11.8-14.3); White Blood Cell 9.2 10^3/uL (4.4-10.8)
[2023-06-26 15:23] LABS: Alanine Aminotransferase 11 U/L (7-40); Alkaline Phosphatase 84 U/L (46-116); Anion Gap 6.4 (5-15); BUN/Creatinine Ratio 9.2 (10.0-20.0); Blood Urea Nitrogen 6 mg/dL (9-23); Calcium 9.6 mg/dL (8.7-10.4); Carbon Dioxide 32.6 mmol/L (20-30); Chloride 97 mmol/L (98-107); Glucose 101 mg/dL (74-106); Potassium 4.3 mmol/L (3.5-5.1); Sodium 136 mmol/L (136-145)
[2023-06-26 15:24] LABS: Albumin 4.1 g/dL (3.2-4.8); Aspartate Aminotransferase 15 U/L (13-40); Bilirubin, Total 1.4 mg/dL (0.2-1.0); Total Protein 7.4 g/dL (5.7-8.2)
[2023-06-26] MEDS ORDERED: MORPHINE SULFATE INJ 2 MG/ml SYRG IV PRN (17:45)
[2023-06-26] MEDS ORDERED: ACETAMINOPHEN 325 MG TAB PO PRN (17:45)
[2023-06-26] MEDS ORDERED: ALBUTEROL SULF 2.5 MG/0.5ML(0.5%) NEB SOLN NEB PRN (17:45)
[2023-06-26] MEDS ORDERED: NITROGLYCERIN 0.4 MG SL TAB SL PRN (17:45)
[2023-06-26] MEDS ORDERED: IOHEXOL 350 MG/ML 100ML IJ ONE (17:56)
[2023-06-26] MEDS: IPRATROPIUM BROM 0.5 MG/2.5ML INH SOL NEB SCH ×2 (18:00→22:46)
[2023-06-26] MEDS: ALBUTEROL SULF 2.5 MG/0.5ML(0.5%) NEB SOLN NEB SCH ×2 (18:00→22:45)
[2023-06-26 18:26] VITALS: BP 106/54; PULSE 79; RESP 20; TEMP 97.6; O2SAT 96
[2023-06-26 19:35] VITALS: PULSE 71; RESP 27; O2SAT 99
[2023-06-26] MEDS: ATORVASTATIN 20 MG TAB PO SCH (22:00)
[2023-06-26 22:08] VITALS: PULSE 80; RESP 18; O2SAT 100
[2023-06-26 22:16] VITALS: PULSE 81; RESP 18; O2SAT 100
[2023-06-27] VITALS (12 sets, daily range): PULSE 72–98; RESP 18–31; O2SAT 95–100
[2023-06-27] MEDS: ALBUTEROL SULF 2.5 MG/0.5ML(0.5%) NEB SOLN NEB SCH ×6 (02:22→19:15)
[2023-06-27] MEDS: IPRATROPIUM BROM 0.5 MG/2.5ML INH SOL NEB SCH ×6 (02:22→19:15)
[2023-06-27 06:07] LABS: Basophils # (auto) 0.1 10 ^3/uL (0-0.2); Basophils % (auto) 0.8 % (0.0-2.0); Eosinophils # (auto) 0.4 10 ^3/uL (0-0.8); Eosinophils % (auto) 4.5 % (0.0-7.0); Hematocrit 44.3 % (41.0-53.0); Hemoglobin 14.7 g/dL (13.5-17.5); Lymphocytes # (auto) 2.4 10 ^3/uL (0.4-5.4); Lymphocytes % (auto) 30.8 % (10.0-50.0); Mean Corpuscular Hgb Conc. 33.3 g/dL (32.0-36.0); Mean Corpuscular Volume 86.9 fL (80.0-100.0); Monocytes # (auto) 0.8 10 ^3/uL (0-1.3); Monocytes % (auto) 10.1 % (0.0-12.0); Neutrophils # (auto) 4.2 10 ^3/uL (1.6-8.6); Neutrophils % (auto) 53.8 % (37.0-80.0); Nucleated Red Blood Cells % 0.1 %; Red Blood Cells 5.09 10^6/uL (4.5-5.90); Red Cell Distribution Width 14.7 % (11.8-14.3); White Blood Cell 7.8 10^3/uL (4.4-10.8)
[2023-06-27 06:24] LABS: Albumin 3.8 g/dL (3.2-4.8); Alkaline Phosphatase 75 U/L (46-116); Anion Gap 6.5 (5-15); Aspartate Aminotransferase 13 U/L (13-40); Bilirubin, Total 0.9 mg/dL (0.2-1.0); Calcium 9.4 mg/dL (8.7-10.4); Carbon Dioxide 32.5 mmol/L (20-30); Chloride 96 mmol/L (98-107); Glucose 109 mg/dL (74-106); Potassium 3.6 mmol/L (3.5-5.1); Sodium 135 mmol/L (136-145); Total Protein 7.2 g/dL (5.7-8.2)
[2023-06-27 06:26] LABS: Alanine Aminotransferase < 9 U/L (7-40); BUN/Creatinine Ratio 7.9 (10.0-20.0); Blood Urea Nitrogen < 5 mg/dL (9-23)
[2023-06-27] MEDS ORDERED: cefTRIAXone 1GM/50ML D5W 50 ML IV SCH (09:00)
[2023-06-27 09:21] LABS: Urine Bacteria NONE SEEN /hpf (None Seen); Urine Blood Negative /uL (Negative); Urine Clarity Clear (Clear); Urine Color Yellow (Yellow); Urine Protein, UAD Negative (Negative); Urine WBC 1 /hpf (0 - 3)
[2023-06-27] MEDS: ASPirin-EC 81 mg tab PO SCH (09:56)
[2023-06-27] MEDS: ENOXAPARIN SOD 40 MG/0.4 ML SYRINGE SC SCH (09:56)
[2023-06-27] MEDS ORDERED: AZITHROMYCIN 500MG/ 250ML 250 ML IV SCH (10:00)
[2023-06-27] MEDS ORDERED: FUROSEMIDE 20 MG/2 ML VIAL IV SCH (10:00)
[2023-06-27] MEDS ORDERED: D5W/SOD CHL 0.45%/KCL 20MEQ 1,000 ML IV SCH (10:45)
[2023-06-27] MEDS ORDERED: GASTROGRAFIN 120 ML SOL ONE (11:02)
[2023-06-27] MEDS: HYDROcodone-ACET 5/325MG TAB PO PRN ×2 (14:04→21:25)
[2023-06-27] MEDS ORDERED: FUROSEMIDE 20 MG/2 ML VIAL IV ONE (16:00)
[2023-06-27] MEDS: FUROSEMIDE 20 MG/2 ML VIAL IV SCH (18:07)
[2023-06-27] MEDS: ATORVASTATIN 20 MG TAB PO SCH (22:45)
[2023-06-27] MEDS: PIPERACILLIN-TAZOB 3.375GM 100 ML IV SCH (22:45)
[2023-06-28] VITALS (13 sets, daily range): BP systolic 105–120; BP diastolic 66–75; PULSE 69–96; RESP 18–20; TEMP 97.4–98.2; O2SAT 93–100
[2023-06-28 01:26] LABS: COVID19 ANTIGEN SOFIA FIA NEGATIVE (NEGATIVE)
[2023-06-28 03:36] LABS: Rapid Influenza A Negative (Negative); Rapid Influenza B Negative (Negative)
[2023-06-28] MEDS: FUROSEMIDE 20 MG/2 ML VIAL IV SCH (05:34)
[2023-06-28] MEDS: PIPERACILLIN-TAZOB 3.375GM 100 ML IV SCH ×3 (05:35→22:03)
[2023-06-28] MEDS: IPRATROPIUM BROM 0.5 MG/2.5ML INH SOL NEB SCH ×3 (06:00→18:45)
[2023-06-28] MEDS: ALBUTEROL SULF 2.5 MG/0.5ML(0.5%) NEB SOLN NEB SCH ×3 (06:00→18:45)
[2023-06-28 06:59] LABS: Anion Gap 3.9 (5-15); Carbon Dioxide 36.1 mmol/L (20-30); Chloride 95 mmol/L (98-107); Potassium 3.7 mmol/L (3.5-5.1); Sodium 135 mmol/L (136-145)
[2023-06-28 07:00] LABS: Calcium 9.4 mg/dL (8.5-10.1)
[2023-06-28 07:05] LABS: Glucose 102 mg/dL (74-106); Triglycerides 76 mg/dL (< 150)
[2023-06-28 07:06] LABS: Amylase 36 U/L (30-118); LDL Cholesterol 53 mg/dL (< 100)
[2023-06-28 07:07] LABS: Cholesterol 112 mg/dL (< 200); HDL Cholesterol 39 mg/dL (40-59)
[2023-06-28 07:40] LABS: Basophils # (auto) 0.1 10 ^3/uL (0-0.2); Basophils % (auto) 0.8 % (0.0-2.0); Eosinophils # (auto) 0.5 10 ^3/uL (0-0.8); Eosinophils % (auto) 6.9 % (0.0-7.0); Hematocrit 44.9 % (41.0-53.0); Hemoglobin 15.5 g/dL (13.5-17.5); Lymphocytes # (auto) 2.3 10 ^3/uL (0.4-5.4); Lymphocytes % (auto) 32.1 % (10.0-50.0); Mean Corpuscular Hemoglobin 29.6 pg (28.0-32.0); Mean Corpuscular Hgb Conc. 34.4 g/dL (32.0-36.0); Monocytes # (auto) 0.7 10 ^3/uL (0-1.3); Monocytes % (auto) 9.7 % (0.0-12.0); Neutrophils # (auto) 3.7 10 ^3/uL (1.6-8.6); Neutrophils % (auto) 50.5 % (37.0-80.0); Nucleated Red Blood Cells % 0.5 %; Red Blood Cells 5.22 10^6/uL (4.5-5.90); White Blood Cell 7.2 10^3/uL (4.4-10.8)
[2023-06-28 07:50] LABS: BUN/Creatinine Ratio 7.4 (10.0-20.0); Blood Urea Nitrogen < 5 mg/dL (9-23)
[2023-06-28] MEDS: ENOXAPARIN SOD 40 MG/0.4 ML SYRINGE SC SCH (09:33)
[2023-06-28] MEDS: ASPirin-EC 81 mg tab PO SCH (09:33)
[2023-06-28] MEDS ORDERED: FUROSEMIDE 40 MG/4 ML VIAL IV SCH (10:00)
[2023-06-28] MEDS: HYDROcodone-ACET 5/325MG TAB PO PRN (14:38)
[2023-06-28] MEDS ORDERED: DEXTROSE 10% IV ONE (17:00)
[2023-06-28] MEDS ORDERED: DEXTROSE 10% 1,000 ML IV ONE (17:00)
[2023-06-28] MEDS: ATORVASTATIN 20 MG TAB PO SCH (22:00)
[2023-06-28] MEDS: methylPREDNISolone SOD SUCC 40 MG/ML VL IV SCH (22:03)
[2023-06-29] VITALS (15 sets, daily range): BP systolic 102–119; BP diastolic 52–77; PULSE 70–96; RESP 16–20; TEMP 96.8–97.7; O2SAT 93–98
[2023-06-29] MEDS: methylPREDNISolone SOD SUCC 40 MG/ML VL IV SCH ×3 (05:30→22:09)
[2023-06-29] MEDS: PIPERACILLIN-TAZOB 3.375GM 100 ML IV SCH ×3 (05:30→22:09)
[2023-06-29 06:12] LABS: Basophils # (auto) 0 10 ^3/uL (0-0.2); Basophils % (auto) 0.5 % (0.0-2.0); Eosinophils # (auto) 0 10 ^3/uL (0-0.8); Eosinophils % (auto) 0.3 % (0.0-7.0); Hematocrit 45.1 % (41.0-53.0); Hemoglobin 15.6 g/dL (13.5-17.5); Lymphocytes # (auto) 1.1 10 ^3/uL (0.4-5.4); Lymphocytes % (auto) 21.1 % (10.0-50.0); Mean Corpuscular Hgb Conc. 34.5 g/dL (32.0-36.0); Mean Corpuscular Volume 86.9 fL (80.0-100.0); Monocytes # (auto) 0.1 10 ^3/uL (0-1.3); Monocytes % (auto) 1.5 % (0.0-12.0); Neutrophils # (auto) 3.9 10 ^3/uL (1.6-8.6); Neutrophils % (auto) 76.6 % (37.0-80.0); Nucleated Red Blood Cells % 0.1 %; Red Blood Cells 5.19 10^6/uL (4.5-5.90); Red Cell Distribution Width 14.6 % (11.8-14.3); White Blood Cell 5.1 10^3/uL (4.4-10.8)
[2023-06-29 06:35] LABS: Alkaline Phosphatase 75 U/L (46-116); Anion Gap 5.2 (5-15); BUN/Creatinine Ratio 7.8 (10.0-20.0); Blood Urea Nitrogen 5 mg/dL (9-23); Calcium 9.3 mg/dL (8.7-10.4); Carbon Dioxide 31.8 mmol/L (20-30); Chloride 93 mmol/L (98-107); Potassium 3.5 mmol/L (3.5-5.1)
[2023-06-29 06:36] LABS: Albumin 3.9 g/dL (3.2-4.8); Aspartate Aminotransferase 10 U/L (13-40); Total Protein 7.4 g/dL (5.7-8.2)
[2023-06-29] MEDS: ALBUTEROL SULF 2.5 MG/0.5ML(0.5%) NEB SOLN NEB SCH ×3 (06:41→19:23)
[2023-06-29] MEDS: IPRATROPIUM BROM 0.5 MG/2.5ML INH SOL NEB SCH ×3 (06:41→19:23)
[2023-06-29 06:47] LABS: Sodium 130 mmol/L (136-145)
[2023-06-29 06:48] LABS: Alanine Aminotransferase < 9 U/L (7-40); Glucose 204 mg/dL (74-106)
[2023-06-29] MEDS: ENOXAPARIN SOD 40 MG/0.4 ML SYRINGE SC SCH (10:28)
[2023-06-29] MEDS: ASPirin-EC 81 mg tab PO SCH (10:28)
[2023-06-29] MEDS ORDERED: guaiFENesin-DM 100/10mg/5ml SYR PO PRN (12:45)
[2023-06-29] MEDS: ATORVASTATIN 20 MG TAB PO SCH (22:00)
[2023-06-30] VITALS (13 sets, daily range): BP systolic 110–129; BP diastolic 62–70; PULSE 71–105; RESP 16–22; TEMP 97.3–98.4; O2SAT 95–100
[2023-06-30] MEDS: PIPERACILLIN-TAZOB 3.375GM 100 ML IV SCH (05:37)
[2023-06-30] MEDS: methylPREDNISolone SOD SUCC 40 MG/ML VL IV SCH (05:38)
[2023-06-30] MEDS: ALBUTEROL SULF 2.5 MG/0.5ML(0.5%) NEB SOLN NEB SCH ×3 (06:07→19:11)
[2023-06-30] MEDS: IPRATROPIUM BROM 0.5 MG/2.5ML INH SOL NEB SCH ×3 (06:07→19:11)
[2023-06-30 06:17] LABS: Basophils # (auto) 0 10 ^3/uL (0-0.2); Eosinophils # (auto) 0 10 ^3/uL (0-0.8); Hematocrit 45.9 % (41.0-53.0); Hemoglobin 15.6 g/dL (13.5-17.5); Lymphocytes # (auto) 1.2 10 ^3/uL (0.4-5.4); Lymphocytes % (auto) 10.5 % (10.0-50.0); Mean Corpuscular Hemoglobin 29.5 pg (28.0-32.0); Mean Corpuscular Volume 86.8 fL (80.0-100.0); Monocytes # (auto) 0.3 10 ^3/uL (0-1.3); Monocytes % (auto) 2.8 % (0.0-12.0); Neutrophils # (auto) 10.3 10 ^3/uL (1.6-8.6); Neutrophils % (auto) 86.7 % (37.0-80.0); Nucleated Red Blood Cells % 0.1 %; Red Blood Cells 5.29 10^6/uL (4.5-5.90); Red Cell Distribution Width 14.9 % (11.8-14.3); White Blood Cell 11.9 10^3/uL (4.4-10.8)
[2023-06-30 06:47] LABS: Albumin 3.9 g/dL (3.2-4.8); Alkaline Phosphatase 68 U/L (46-116); Anion Gap 3.4 (5-15); Aspartate Aminotransferase 12 U/L (13-40); BUN/Creatinine Ratio 9.3 (10.0-20.0); Bilirubin, Total 0.8 mg/dL (0.2-1.0); Blood Urea Nitrogen 7 mg/dL (9-23); Calcium 9.7 mg/dL (8.5-10.1); Carbon Dioxide 35.6 mmol/L (20-30); Chloride 93 mmol/L (98-107); Glucose 136 mg/dL (74-106); Magnesium 2.1 mg/dL (1.6-2.6); Potassium 3.8 mmol/L (3.5-5.1); Sodium 132 mmol/L (136-145); Total Protein 7.3 g/dL (5.7-8.2)
[2023-06-30 06:51] LABS: Alanine Aminotransferase < 9 U/L (7-40)
[2023-06-30] MEDS: ASPirin-EC 81 mg tab PO SCH (09:56)
[2023-06-30] MEDS: ENOXAPARIN SOD 40 MG/0.4 ML SYRINGE SC SCH (09:57)
[2023-06-30] MEDS ORDERED: POTASSIUM CHL 10 Meq TABLET PO ONE (16:30)
[2023-06-30] MEDS ORDERED: FUROSEMIDE 20 MG/2 ML VIAL IV ONE (16:30)
[2023-06-30] MEDS: predniSONE 20 MG TAB PO SCH (17:45)
[2023-06-30] MEDS: guaiFENesin-DM 100/10mg/5ml SYR PO SCH ×3 (17:45→21:26)
[2023-06-30] MEDS: levoFLOXacin 500MG 100 ML IV SCH (17:45)
[2023-06-30] MEDS: ATORVASTATIN 20 MG TAB PO SCH (21:25)
[2023-06-30] MEDS: POTASSIUM CHL 10 Meq TABLET PO SCH (21:25)
[2023-06-30] MEDS: NEOMYCIN-POLYMY-DEXAMETH 0.1% OPTH(EYE) SUSP 5ML EACHEYE SCH (21:27)
[2023-07-01] VITALS (15 sets, daily range): BP systolic 102–136; BP diastolic 63–77; PULSE 77–99; RESP 15–18; TEMP 97.3–98; O2SAT 94–100
[2023-07-01] MEDS: NEOMYCIN-POLYMY-DEXAMETH 0.1% OPTH(EYE) SUSP 5ML EACHEYE SCH ×6 (02:19→22:41)
[2023-07-01] MEDS: guaiFENesin-DM 100/10mg/5ml SYR PO SCH ×4 (05:33→22:39)
[2023-07-01] MEDS ORDERED: FUROSEMIDE 20 MG TAB PO SCH (06:00)
[2023-07-01 06:19] LABS: Basophils # (auto) 0 10 ^3/uL (0-0.2); Basophils % (auto) 0.1 % (0.0-2.0); Eosinophils # (auto) 0 10 ^3/uL (0-0.8); Hematocrit 44.6 % (41.0-53.0); Hemoglobin 15.2 g/dL (13.5-17.5); Lymphocytes # (auto) 1.2 10 ^3/uL (0.4-5.4); Lymphocytes % (auto) 10.5 % (10.0-50.0); Mean Corpuscular Hemoglobin 29.2 pg (28.0-32.0); Monocytes # (auto) 0.3 10 ^3/uL (0-1.3); Monocytes % (auto) 3.1 % (0.0-12.0); Neutrophils # (auto) 9.6 10 ^3/uL (1.6-8.6); Neutrophils % (auto) 86.3 % (37.0-80.0); Red Blood Cells 5.19 10^6/uL (4.5-5.90); Red Cell Distribution Width 14.9 % (11.8-14.3); White Blood Cell 11.1 10^3/uL (4.4-10.8)
[2023-07-01 06:34] LABS: Albumin 3.8 g/dL (3.2-4.8); Alkaline Phosphatase 61 U/L (46-116); Anion Gap 4.7 (5-15); Aspartate Aminotransferase 15 U/L (13-40); BUN/Creatinine Ratio 18.6 (10.0-20.0); Blood Urea Nitrogen 13 mg/dL (9-23); Calcium 9.4 mg/dL (8.5-10.1); Carbon Dioxide 32.3 mmol/L (20-30); Chloride 95 mmol/L (98-107); Glucose 150 mg/dL (74-106); Magnesium 2.2 mg/dL (1.6-2.6); Potassium 4.4 mmol/L (3.5-5.1); Sodium 132 mmol/L (136-145)
[2023-07-01 06:35] LABS: Bilirubin, Total 0.6 mg/dL (0.2-1.0)
[2023-07-01 06:43] LABS: Alanine Aminotransferase 9 U/L (7-40)
[2023-07-01] MEDS: IPRATROPIUM BROM 0.5 MG/2.5ML INH SOL NEB SCH ×3 (07:07→18:41)
[2023-07-01] MEDS: ALBUTEROL SULF 2.5 MG/0.5ML(0.5%) NEB SOLN NEB SCH ×3 (07:07→18:41)
[2023-07-01] MEDS: predniSONE 20 MG TAB PO SCH (09:15)
[2023-07-01] MEDS: ASPirin-EC 81 mg tab PO SCH (09:15)
[2023-07-01] MEDS: POTASSIUM CHL 10 Meq TABLET PO SCH ×2 (09:15→22:40)
[2023-07-01] MEDS: ENOXAPARIN SOD 40 MG/0.4 ML SYRINGE SC SCH (09:16)
[2023-07-01] MEDS: levoFLOXacin 500MG 100 ML IV SCH (09:18)
[2023-07-01] MEDS ORDERED: FUROSEMIDE 40 MG TAB PO SCH (18:00)
[2023-07-01] MEDS: FUROSEMIDE 20 MG TAB PO SCH (18:04)
[2023-07-01] MEDS: ATORVASTATIN 20 MG TAB PO SCH (22:40)
[2023-07-02] VITALS (13 sets, daily range): BP systolic 106–121; BP diastolic 59–82; PULSE 80–91; RESP 14–21; TEMP 97.5–98; O2SAT 94–100
[2023-07-02] MEDS: NEOMYCIN-POLYMY-DEXAMETH 0.1% OPTH(EYE) SUSP 5ML EACHEYE SCH ×6 (02:00→21:51)
[2023-07-02] MEDS: FUROSEMIDE 20 MG TAB PO SCH ×2 (05:52→17:50)
[2023-07-02] MEDS: guaiFENesin-DM 100/10mg/5ml SYR PO SCH ×4 (05:52→21:51)
[2023-07-02 06:15] LABS: Basophils # (auto) 0 10 ^3/uL (0-0.2); Basophils % (auto) 0.1 % (0.0-2.0); Eosinophils # (auto) 0 10 ^3/uL (0-0.8); Hematocrit 45.2 % (41.0-53.0); Hemoglobin 15.1 g/dL (13.5-17.5); Lymphocytes # (auto) 2.6 10 ^3/uL (0.4-5.4); Mean Corpuscular Hemoglobin 29.3 pg (28.0-32.0); Mean Corpuscular Hgb Conc. 33.5 g/dL (32.0-36.0); Mean Corpuscular Volume 87.5 fL (80.0-100.0); Monocytes # (auto) 1.1 10 ^3/uL (0-1.3); Monocytes % (auto) 8.4 % (0.0-12.0); Neutrophils # (auto) 9.2 10 ^3/uL (1.6-8.6); Neutrophils % (auto) 71.5 % (37.0-80.0); Nucleated Red Blood Cells % 0.1 %; Red Blood Cells 5.17 10^6/uL (4.5-5.90); Red Cell Distribution Width 14.8 % (11.8-14.3); White Blood Cell 12.8 10^3/uL (4.4-10.8)
[2023-07-02] MEDS: IPRATROPIUM BROM 0.5 MG/2.5ML INH SOL NEB SCH ×3 (06:27→19:13)
[2023-07-02] MEDS: ALBUTEROL SULF 2.5 MG/0.5ML(0.5%) NEB SOLN NEB SCH ×3 (06:27→19:13)
[2023-07-02 06:42] LABS: Alanine Aminotransferase 22 U/L (7-40); Albumin 3.8 g/dL (3.2-4.8); Alkaline Phosphatase 57 U/L (46-116); Anion Gap 0.4 (5-15); Aspartate Aminotransferase 21 U/L (13-40); BUN/Creatinine Ratio 17.9 (10.0-20.0); Blood Urea Nitrogen 10 mg/dL (9-23); Calcium 9.5 mg/dL (8.7-10.4); Carbon Dioxide 34.6 mmol/L (20-30); Chloride 97 mmol/L (98-107); Glucose 104 mg/dL (74-106); Magnesium 2.3 mg/dL (1.6-2.6); Potassium 4.7 mmol/L (3.5-5.1); Sodium 132 mmol/L (136-145)
[2023-07-02 06:43] LABS: Bilirubin, Total 0.7 mg/dL (0.2-1.0); Total Protein 6.8 g/dL (5.7-8.2)
[2023-07-02] MEDS: levoFLOXacin 500MG 100 ML IV SCH (09:36)
[2023-07-02] MEDS: ASPirin-EC 81 mg tab PO SCH (09:36)
[2023-07-02] MEDS: predniSONE 20 MG TAB PO SCH (09:37)
[2023-07-02] MEDS: ENOXAPARIN SOD 40 MG/0.4 ML SYRINGE SC SCH (09:37)
[2023-07-02] MEDS: POTASSIUM CHL 10 Meq TABLET PO SCH ×2 (09:37→21:51)
[2023-07-02] MEDS ORDERED: PRED10TA PO (11:08)
[2023-07-02] MEDS ORDERED: LEVO500T91 PO (11:08)
[2023-07-02] MEDS ORDERED: DEXT1SYP9 PO (11:08)
[2023-07-02] MEDS ORDERED: PRED20TA2 PO (11:08)
[2023-07-02] MEDS: ATORVASTATIN 20 MG TAB PO SCH (21:51)
[2023-07-03] VITALS (14 sets, daily range): BP systolic 102–118; BP diastolic 63–73; PULSE 70–93; RESP 14–20; TEMP 97.5–98.9; O2SAT 95–99
[2023-07-03] MEDS: NEOMYCIN-POLYMY-DEXAMETH 0.1% OPTH(EYE) SUSP 5ML EACHEYE SCH ×6 (02:00→21:35)
[2023-07-03] MEDS: IPRATROPIUM BROM 0.5 MG/2.5ML INH SOL NEB SCH ×3 (06:26→18:38)
[2023-07-03] MEDS: ALBUTEROL SULF 2.5 MG/0.5ML(0.5%) NEB SOLN NEB SCH ×3 (06:26→18:38)
[2023-07-03] MEDS: FUROSEMIDE 20 MG TAB PO SCH ×2 (06:43→17:42)
[2023-07-03] MEDS: guaiFENesin-DM 100/10mg/5ml SYR PO SCH ×4 (06:43→21:36)
[2023-07-03] MEDS: levoFLOXacin 500MG 100 ML IV SCH (09:48)
[2023-07-03] MEDS: ASPirin-EC 81 mg tab PO SCH (09:48)
[2023-07-03] MEDS: predniSONE 20 MG TAB PO SCH (09:48)
[2023-07-03] MEDS: ENOXAPARIN SOD 40 MG/0.4 ML SYRINGE SC SCH (09:49)
[2023-07-03] MEDS: POTASSIUM CHL 10 Meq TABLET PO SCH (09:49)
[2023-07-03] MEDS: ATORVASTATIN 20 MG TAB PO SCH (21:36)
[2023-07-04] VITALS (16 sets, daily range): BP systolic 98–113; BP diastolic 55–72; PULSE 72–101; RESP 16–20; TEMP 97.4–98.7; O2SAT 93–99
[2023-07-04] MEDS: NEOMYCIN-POLYMY-DEXAMETH 0.1% OPTH(EYE) SUSP 5ML EACHEYE SCH ×6 (02:00→21:51)
[2023-07-04] MEDS: FUROSEMIDE 20 MG TAB PO SCH ×2 (05:46→17:42)
[2023-07-04] MEDS: guaiFENesin-DM 100/10mg/5ml SYR PO SCH ×4 (05:46→21:32)
[2023-07-04] MEDS: ALBUTEROL SULF 2.5 MG/0.5ML(0.5%) NEB SOLN NEB SCH ×3 (06:24→18:25)
[2023-07-04] MEDS: IPRATROPIUM BROM 0.5 MG/2.5ML INH SOL NEB SCH ×3 (06:24→18:25)
[2023-07-04] MEDS: predniSONE 20 MG TAB PO SCH (10:43)
[2023-07-04] MEDS: ASPirin-EC 81 mg tab PO SCH (10:44)
[2023-07-04] MEDS: ENOXAPARIN SOD 40 MG/0.4 ML SYRINGE SC SCH (10:44)
[2023-07-04] MEDS: levoFLOXacin 500MG 100 ML IV SCH (10:44)
[2023-07-04] MEDS ORDERED: ACETAMINOPHEN 500 MG TAB PO ONE (15:15)
[2023-07-04] MEDS ORDERED: ACETAMINOPHEN 500 MG TAB PO PRN (15:15)
[2023-07-04] MEDS: ATORVASTATIN 20 MG TAB PO SCH (21:31)
[2023-07-05] VITALS (12 sets, daily range): BP systolic 104–122; BP diastolic 70–84; PULSE 71–108; RESP 16–20; TEMP 97.6–98.5; O2SAT 88–98
[2023-07-05] MEDS: NEOMYCIN-POLYMY-DEXAMETH 0.1% OPTH(EYE) SUSP 5ML EACHEYE SCH ×6 (03:21→22:00)
[2023-07-05] MEDS: guaiFENesin-DM 100/10mg/5ml SYR PO SCH ×4 (05:22→22:00)
[2023-07-05] MEDS: FUROSEMIDE 20 MG TAB PO SCH ×2 (05:23→17:57)
[2023-07-05] MEDS: IPRATROPIUM BROM 0.5 MG/2.5ML INH SOL NEB SCH ×3 (06:45→18:33)
[2023-07-05] MEDS: ALBUTEROL SULF 2.5 MG/0.5ML(0.5%) NEB SOLN NEB SCH ×3 (06:45→18:33)
[2023-07-05] MEDS: predniSONE 20 MG TAB PO SCH (09:41)
[2023-07-05] MEDS: ASPirin-EC 81 mg tab PO SCH (09:42)
[2023-07-05] MEDS: levoFLOXacin 500MG 100 ML IV SCH (09:42)
[2023-07-05] MEDS: ENOXAPARIN SOD 40 MG/0.4 ML SYRINGE SC SCH (09:43)
[2023-07-05] MEDS: ATORVASTATIN 20 MG TAB PO SCH (22:25)
[2023-07-06] MEDS: NEOMYCIN-POLYMY-DEXAMETH 0.1% OPTH(EYE) SUSP 5ML EACHEYE SCH ×3 (02:00→09:44)
[2023-07-06 05:00] VITALS: BP 103/62; PULSE 74; RESP 18; TEMP 97.7; O2SAT 98
[2023-07-06] MEDS: ALBUTEROL SULF 2.5 MG/0.5ML(0.5%) NEB SOLN NEB SCH (06:00)
[2023-07-06] MEDS: IPRATROPIUM BROM 0.5 MG/2.5ML INH SOL NEB SCH (06:00)
[2023-07-06] MEDS: guaiFENesin-DM 100/10mg/5ml SYR PO SCH (06:37)
[2023-07-06] MEDS: FUROSEMIDE 20 MG TAB PO SCH (06:40)
[2023-07-06 08:00] VITALS: BP 125/77; PULSE 70; RESP 18; TEMP 97.9; O2SAT 97
[2023-07-06 09:00] VITALS: BP 125/77; PULSE 70; RESP 18; TEMP 97.9; O2SAT 97
[2023-07-06] MEDS: predniSONE 20 MG TAB PO SCH (09:42)
[2023-07-06] MEDS: levoFLOXacin 500MG 100 ML IV SCH (09:42)
[2023-07-06] MEDS: ENOXAPARIN SOD 40 MG/0.4 ML SYRINGE SC SCH (09:42)
[2023-07-06] MEDS: ASPirin-EC 81 mg tab PO SCH (09:42)
[2023-07-06 10:00] VITALS: O2SAT 97
== END 2023-07-06 11:26 | disposition home health service (06) | DRG 196 ==
LOC: ER 13:28 → TELE 17:37 → TELE-WESTW 06-28 01:51 → WEST WING 07-01 18:09
PROVIDERS: ADMIT Internal Medicine
DX: J84.10 Pulmonary fibrosis, unspecified (principal); I50.33 Acute on chronic diastolic (congestive) heart failure; J96.21 Acute and chronic respiratory failure with hypoxia; J44.1 Chronic obstructive pulmonary disease with (acute) exacerbation; I27.20 Pulmonary hypertension, unspecified; I73.9 Peripheral vascular disease, unspecified; J01.90 Acute sinusitis, unspecified; Z82.3 Family history of stroke; Z87.891 Personal history of nicotine dependence; Z88.1 Allergy status to other antibiotic agents
CPT/HCPCS: 36415; 71045; 71275; 74220; 80048; 80053; 80061; 81001; 82150; 83036; 83605; 83735; 83880; 84132; 84443; 84484; 85025; 85379; 87040; 87070; 87205; 87426; 87804; 93005; 94640; 96365; 96367; 96375; 97110; 97116; 97163; 97530; 99291; G0378; J0696; J1956; J2543

== ENCOUNTER 2023-07-22 00:55 | Inpatient (IN) | payer OTHER ==
[~2023-07-22] VITALS: Ht 175.3 cm; Wt 72.7 kg
[~2023-07-22 00:55] MED LIST changes: +DEXT1SYP9 PO; +LEVO500T91 PO; +PRED10TA PO
[2023-07-22 02:34] LABS: Basophils # (auto) 0.1 10 ^3/uL (0-0.2); Basophils % (auto) 0.8 % (0.0-2.0); Eosinophils # (auto) 0.7 10 ^3/uL (0-0.8); Eosinophils % (auto) 6.5 % (0.0-7.0); Hematocrit 42.2 % (41.0-53.0); Hemoglobin 14.2 g/dL (13.5-17.5); Lymphocytes # (auto) 2.7 10 ^3/uL (0.4-5.4); Lymphocytes % (auto) 24.9 % (10.0-50.0); Mean Corpuscular Hgb Conc. 33.7 g/dL (32.0-36.0); Mean Corpuscular Volume 89.2 fL (80.0-100.0); Monocytes # (auto) 0.8 10 ^3/uL (0-1.3); Monocytes % (auto) 6.9 % (0.0-12.0); Neutrophils # (auto) 6.6 10 ^3/uL (1.6-8.6); Neutrophils % (auto) 60.9 % (37.0-80.0); Nucleated Red Blood Cells % 0.1 %; Red Blood Cells 4.73 10^6/uL (4.5-5.90); Red Cell Distribution Width 15.6 % (11.8-14.3); White Blood Cell 10.9 10^3/uL (4.4-10.8)
[2023-07-22 02:53] LABS: Alanine Aminotransferase 21 U/L (7-40); Albumin 3.9 g/dL (3.2-4.8); Alkaline Phosphatase 77 U/L (46-116); Anion Gap 2 (5-15); Aspartate Aminotransferase 23 U/L (13-40); BUN/Creatinine Ratio 17.9 (10.0-20.0); Bilirubin, Total 0.5 mg/dL (0.2-1.0); Blood Urea Nitrogen 12 mg/dL (9-23); Calcium 9.2 mg/dL (8.7-10.4); Carbon Dioxide 34 mmol/L (20-30); Chloride 100 mmol/L (98-107); Glucose 103 mg/dL (74-106); INR 0.99 (0.9-1.15); Partial Thromboplastin Time 26.9 SEC (24.5-34.5); Potassium 4.2 mmol/L (3.5-5.1); Prothrombin Time 10.4 sec (9.3-11.8); Sodium 136 mmol/L (136-145); Total Protein 6.5 g/dL (5.7-8.2)
[2023-07-22] MEDS ORDERED: IOHEXOL 350 MG/ML 100ML IJ ONE (03:44)
[2023-07-22] MEDS ORDERED: AZITHROMYCIN 500MG/ 250ML 250 ML IV ONE (06:00)
[2023-07-22] MEDS ORDERED: MORPHINE SULFATE INJ 2 MG/ml SYRG IV PRN (07:00)
[2023-07-22] MEDS ORDERED: ALBUTEROL SULF 2.5 MG/0.5ML(0.5%) NEB SOLN NEB PRN (07:00)
[2023-07-22] MEDS ORDERED: ONDANSETRON HCL 4 MG/2 ML VIAL IV PRN (07:00)
[2023-07-22] MEDS ORDERED: NITROGLYCERIN 0.4 MG SL TAB SL PRN (07:00)
[2023-07-22] MEDS ORDERED: ACETAMINOPHEN 325 MG TAB PO PRN (07:00)
[2023-07-22 07:05] LABS: Urine Bacteria NONE SEEN /hpf (None Seen); Urine Blood Negative /uL (Negative); Urine Clarity Clear (Clear); Urine Color Yellow (Yellow); Urine Protein, UAD TRACE (Negative); Urine Specific Gravity 1.047 (1.001-1.035); Urine Urobilinogen Normal (Negative); Urine WBC 1 /hpf (0 - 3)
[2023-07-22 07:54] VITALS: BP 117/98; PULSE 83; RESP 16; TEMP 98.2; O2SAT 94
[2023-07-22 08:00] VITALS: PULSE 79; RESP 16; O2SAT 97
[2023-07-22] MEDS ORDERED: ENOXAPARIN SOD 40 MG/0.4 ML SYRINGE SC SCH (10:00)
[2023-07-22] MEDS ORDERED: PANTOPRAZOLE 40 MG TAB PO SCH (10:00)
[2023-07-22] MEDS ORDERED: ASPirin 81 mg TAB PO SCH (10:00)
[2023-07-22] MEDS ORDERED: levoFLOXacin 500MG 100 ML IV SCH (10:00)
[2023-07-22] MEDS ORDERED: DOXY-286 PO (14:12)
[2023-07-22] MEDS ORDERED: PANT40T PO (14:12)
[2023-07-22] MEDS ORDERED: FUROSEMIDE 20 MG/2 ML VIAL IV ONE (14:15)
[2023-07-22 16:00] VITALS: BP 94/58; PULSE 83; RESP 32; O2SAT 95
[2023-07-22] MEDS ORDERED: MAALOX PLUS or MAALOX 30 ML PO ONE (16:15)
[2023-07-22] MEDS ORDERED: FUROSEMIDE 20 MG TAB PO SCH (18:00)
[2023-07-22] MEDS ORDERED: ATORVASTATIN 20 MG TAB PO SCH (22:00)
== END 2023-07-22 17:05 | disposition home or self-care (01) | DRG 391 ==
LOC: EDBD 00:55 → ER 00:55 → TELE 06:55
PROVIDERS: ADMIT Internal Medicine; ATTEND Student in an Organized Health Care Education/Training Program
DX: K29.70 Gastritis, unspecified, without bleeding (principal); J18.9 Pneumonia, unspecified organism; I50.9 Heart failure, unspecified; J84.10 Pulmonary fibrosis, unspecified; I11.0 Hypertensive heart disease with heart failure; R59.0 Localized enlarged lymph nodes; Z88.1 Allergy status to other antibiotic agents; Z90.49 Acquired absence of other specified parts of digestive tract
CPT/HCPCS: 36415; 71045; 71275; 80053; 81001; 84484; 85025; 85379; 85610; 85730; 93005; 96365; 96366; 96367; 96372; G0378; J1956

== ENCOUNTER 2023-08-05 16:41 | Emergency (ER) | payer OTHER ==
[~2023-08-05] VITALS: Ht 177.8 cm; Wt 77.0 kg
[~2023-08-05 16:41] MED LIST changes: +DOXY-286 PO; +PANT40T PO
[2023-08-05 17:09] VITALS: PULSE 81; RESP 24; O2SAT 99
[2023-08-05 18:01] LABS: Basophils # (auto) 0.1 10 ^3/uL (0-0.2); Basophils % (auto) 0.8 % (0.0-2.0); Eosinophils # (auto) 0.3 10 ^3/uL (0-0.8); Eosinophils % (auto) 3.4 % (0.0-7.0); Hematocrit 41.6 % (41.0-53.0); Hemoglobin 13.9 g/dL (13.5-17.5); Lymphocytes # (auto) 2.2 10 ^3/uL (0.4-5.4); Lymphocytes % (auto) 27.3 % (10.0-50.0); Mean Corpuscular Hgb Conc. 33.5 g/dL (32.0-36.0); Mean Corpuscular Volume 89.5 fL (80.0-100.0); Monocytes # (auto) 0.8 10 ^3/uL (0-1.3); Monocytes % (auto) 9.9 % (0.0-12.0); Neutrophils # (auto) 4.7 10 ^3/uL (1.6-8.6); Neutrophils % (auto) 58.6 % (37.0-80.0); Nucleated Red Blood Cells % 0.2 %; Red Blood Cells 4.64 10^6/uL (4.5-5.90); Red Cell Distribution Width 15.3 % (11.8-14.3)
[2023-08-05 18:15] LABS: Alanine Aminotransferase 13 U/L (7-40); Albumin 3.6 g/dL (3.2-4.8); Alkaline Phosphatase 90 U/L (46-116); Anion Gap 4 (5-15); Aspartate Aminotransferase 16 U/L (13-40); BUN/Creatinine Ratio 10.8 (10.0-20.0); Bilirubin, Total 0.6 mg/dL (0.2-1.0); Blood Urea Nitrogen 8 mg/dL (9-23); Calcium 9.1 mg/dL (8.5-10.1); Carbon Dioxide 32 mmol/L (20-30); Chloride 102 mmol/L (98-107); Glucose 107 mg/dL (74-106); Potassium 4.5 mmol/L (3.5-5.1); Sodium 138 mmol/L (136-145); Total Protein 5.9 g/dL (5.7-8.2)
[2023-08-05 18:17] LABS: INR 1.12 (0.9-1.15); Prothrombin Time 11.7 sec (9.3-11.8)
[2023-08-05 19:50] VITALS: PULSE 72; RESP 17; O2SAT 98
[2023-08-05] MEDS ORDERED: PRED20TA2 PO (19:56)
[2023-08-05] MEDS ORDERED: AUG875T PO (19:56)
[2023-08-05 20:21] VITALS: BP 102/55; PULSE 78; RESP 11; TEMP 97.4; O2SAT 98
== END 2023-08-05 20:39 | disposition home or self-care (01) ==
LOC: ER 16:41 → EDBD 16:41 → ER 20:30
DX: J84.112 Idiopathic pulmonary fibrosis (principal); R06.02 Shortness of breath; I11.0 Hypertensive heart disease with heart failure; I50.89 Other heart failure; Z90.49 Acquired absence of other specified parts of digestive tract
CPT/HCPCS: 36415; 71045; 80053; 83605; 83880; 84484; 85025; 85610; 93005

== ENCOUNTER → 2023-08-13 | Outpatient (CLI) | payer OTHER ==
[~2023-08-13] MED LIST changes: +ALBUTEROL SULF 2.5 MG/0.5ML(0.5%) NEB SOLN ONE; +AUG875T PO
== END | disposition home or self-care (01) ==
LOC: RT 06-26 12:40
PROVIDERS: ATTEND Internal Medicine Pulmonary Disease
DX: J44.9 Chronic obstructive pulmonary disease, unspecified (principal); R06.09 Other forms of dyspnea
CPT/HCPCS: 94060; 94727; 94729

== ENCOUNTER → 2023-08-13 | Outpatient (CLI) | payer OTHER ==
[~2023-08-13] MED LIST changes: -ALBUTEROL SULF 2.5 MG/0.5ML(0.5%) NEB SOLN ONE
[2023-08-13 16:34] LABS: Basophils # (auto) 0.1 10 ^3/uL (0-0.2); Basophils % (auto) 0.8 % (0.0-2.0); Eosinophils # (auto) 0.4 10 ^3/uL (0-0.8); Eosinophils % (auto) 3.1 % (0.0-7.0); Hematocrit 45.6 % (41.0-53.0); Hemoglobin 15.1 g/dL (13.5-17.5); Lymphocytes # (auto) 2.7 10 ^3/uL (0.4-5.4); Lymphocytes % (auto) 21.4 % (10.0-50.0); Mean Corpuscular Hemoglobin 29.7 pg (28.0-32.0); Mean Corpuscular Hgb Conc. 33.2 g/dL (32.0-36.0); Mean Corpuscular Volume 89.5 fL (80.0-100.0); Monocytes % (auto) 7.6 % (0.0-12.0); Neutrophils # (auto) 8.4 10 ^3/uL (1.6-8.6); Neutrophils % (auto) 67.1 % (37.0-80.0); Nucleated Red Blood Cells % 0.2 %; Red Cell Distribution Width 14.8 % (11.8-14.3); White Blood Cell 12.6 10^3/uL (4.4-10.8)
[2023-08-13 17:08] LABS: Bilirubin, Total 0.5 mg/dL (0.2-1.0); Cholesterol 143 mg/dL (< 200); HDL Cholesterol 47 mg/dL (40-59); LDL Cholesterol 73 mg/dL (< 100); Triglycerides 129 mg/dL (< 150)
[2023-08-13 17:09] LABS: Total Protein 7.1 g/dL (5.7-8.2)
[2023-08-13 17:23] LABS: Magnesium 2.3 mg/dL (1.6-2.6)
[2023-08-13 17:24] LABS: Alanine Aminotransferase 24 U/L (7-40); Albumin 4.2 g/dL (3.2-4.8); Alkaline Phosphatase 100 U/L (46-116); Anion Gap 7 (5-15); Aspartate Aminotransferase 24 U/L (13-40); BUN/Creatinine Ratio 10.6 (10.0-20.0); Blood Urea Nitrogen 9 mg/dL (9-23); Calcium 9.4 mg/dL (8.7-10.4); Carbon Dioxide 33 mmol/L (20-30); Chloride 98 mmol/L (98-107); Glucose 106 mg/dL (74-106); Potassium 4.5 mmol/L (3.5-5.1); Sodium 138 mmol/L (136-145)
[2023-08-14 10:47] LABS: PSA Free 1.32 ng/mL; Prostate Specific Antigen 4.8 ng/mL (0.0-4.0)
[2023-08-15 14:46] LABS: Urine Bacteria NONE SEEN /hpf (None Seen); Urine Blood Negative /uL (Negative); Urine Clarity Clear (Clear); Urine Color Colorless (Yellow); Urine Protein, UAD Negative (Negative); Urine Specific Gravity 1.009 (1.001-1.035); Urine Urobilinogen Normal (Negative); Urine WBC 1 /hpf (0 - 3)
== END | disposition home or self-care (01) ==
LOC: LAB 16:12
PROVIDERS: ATTEND Internal Medicine
DX: Z01.00 Encounter for examination of eyes and vision without abnormal findings (principal)
CPT/HCPCS: 36415; 80053; 80061; 81001; 82306; 83036; 83735; 84153; 84154; 85025; 87086

== ENCOUNTER → 2023-09-10 | Outpatient (CLI) | payer OTHER | END | disposition home or self-care (01) | LOC: XYW 14:53 | PROVIDERS: ATTEND Internal Medicine | DX: I27.20 Pulmonary hypertension, unspecified (principal) | CPT/HCPCS: 78582; A9540; A9558 ==

== ENCOUNTER 2023-09-24 15:09 | Inpatient (IN) | payer OTHER ==
[~2023-09-24] VITALS: Ht 160 cm; Wt 70.0 kg
[2023-09-24 16:31] LABS: Basophils # (auto) 0.1 10 ^3/uL (0-0.2); Basophils % (auto) 0.9 % (0.0-2.0); Eosinophils # (auto) 0.4 10 ^3/uL (0-0.8); Hemoglobin 15.1 g/dL (13.5-17.5); Lymphocytes % (auto) 28.2 % (10.0-50.0); Mean Corpuscular Hemoglobin 29.8 pg (28.0-32.0); Mean Corpuscular Hgb Conc. 33.5 g/dL (32.0-36.0); Mean Corpuscular Volume 89.1 fL (80.0-100.0); Monocytes % (auto) 9.7 % (0.0-12.0); Neutrophils # (auto) 6.2 10 ^3/uL (1.6-8.6); Neutrophils % (auto) 57.2 % (37.0-80.0); Nucleated Red Blood Cells % 0.1 %; Red Blood Cells 5.05 10^6/uL (4.5-5.90); Red Cell Distribution Width 14.1 % (11.8-14.3); White Blood Cell 10.8 10^3/uL (4.4-10.8)
[2023-09-24 16:48] LABS: INR 1.09 (0.9-1.15); Partial Thromboplastin Time 28.6 SEC (24.5-34.5); Prothrombin Time 11.4 sec (9.3-11.8)
[2023-09-24 16:50] LABS: Alanine Aminotransferase 12 U/L (7-40); Albumin 4.4 g/dL (3.2-4.8); Alkaline Phosphatase 101 U/L (46-116); Anion Gap 3 (5-15); Aspartate Aminotransferase 18 U/L (13-40); BUN/Creatinine Ratio 11.3 (10.0-20.0); Blood Urea Nitrogen 9 mg/dL (9-23); Calcium 9.5 mg/dL (8.7-10.4); Carbon Dioxide 36 mmol/L (20-30); Chloride 98 mmol/L (98-107); Glucose 81 mg/dL (74-106); Magnesium 2.2 mg/dL (1.6-2.6); Sodium 137 mmol/L (136-145)
[2023-09-24 16:51] LABS: Bilirubin, Total 0.7 mg/dL (0.2-1.0); Total Protein 7.9 g/dL (5.7-8.2)
[2023-09-24] MEDS ORDERED: MORPHINE SULFATE INJ 2 MG/ml SYRG IV PRN (21:15)
[2023-09-24] MEDS ORDERED: NITROGLYCERIN 0.4 MG SL TAB SL PRN (21:15)
[2023-09-24] MEDS ORDERED: ALBUTEROL MEDNEB 2.5 mg/3ml NEB NEB PRN (21:15)
[2023-09-24] MEDS ORDERED: levoFLOXacin 500MG 100 ML IV ONE (21:15)
[2023-09-24] MEDS ORDERED: ONDANSETRON HCL 4 MG/2 ML VIAL IV PRN (21:15)
[2023-09-24] MEDS ORDERED: TEMAZEPAM 15 MG CAP PO PRN (21:15)
[2023-09-24] MEDS ORDERED: ACETAMINOPHEN 325 MG TAB PO PRN (21:15)
[2023-09-24 22:29] VITALS: PULSE 73; RESP 20; O2SAT 91
[2023-09-24 22:36] VITALS: BP 129/69; PULSE 70; RESP 24; TEMP 98.7; O2SAT 95
[2023-09-24] MEDS: ATORVASTATIN 20 MG TAB PO SCH (22:36)
[2023-09-25] VITALS (14 sets, daily range): BP systolic 91–124; BP diastolic 56–64; PULSE 56–86; RESP 14–22; TEMP 97.5–98.3; O2SAT 90–98
[2023-09-25 02:14] LABS: COVID19 ANTIGEN SOFIA FIA NEGATIVE (NEGATIVE); Rapid Influenza A Negative (Negative); Rapid Influenza B Negative (Negative)
[2023-09-25 06:29] LABS: Basophils # (auto) 0.1 10 ^3/uL (0-0.2); Basophils % (auto) 0.6 % (0.0-2.0); Eosinophils # (auto) 0.5 10 ^3/uL (0-0.8); Eosinophils % (auto) 3.8 % (0.0-7.0); Hematocrit 41.9 % (41.0-53.0); Lymphocytes % (auto) 16.1 % (10.0-50.0); Mean Corpuscular Hemoglobin 29.7 pg (28.0-32.0); Mean Corpuscular Hgb Conc. 33.4 g/dL (32.0-36.0); Monocytes # (auto) 1.2 10 ^3/uL (0-1.3); Neutrophils # (auto) 8.4 10 ^3/uL (1.6-8.6); Neutrophils % (auto) 69.5 % (37.0-80.0); Nucleated Red Blood Cells % 0.1 %; Red Blood Cells 4.71 10^6/uL (4.5-5.90); Red Cell Distribution Width 14.2 % (11.8-14.3); White Blood Cell 12.1 10^3/uL (4.4-10.8)
[2023-09-25 06:36] LABS: Chloride 98 mmol/L (98-107); Potassium 3.9 mmol/L (3.5-5.1); Sodium 137 mmol/L (136-145)
[2023-09-25 06:37] LABS: Anion Gap 4 (5-15); Calcium 9.5 mg/dL (8.5-10.1); Carbon Dioxide 35 mmol/L (20-30)
[2023-09-25 06:42] LABS: Blood Urea Nitrogen 9 mg/dL (9-23); Glucose 123 mg/dL (74-106)
[2023-09-25] MEDS ORDERED: ALBUTEROL MEDNEB 2.5 mg/3ml NEB NEB PRN (06:45)
[2023-09-25] MEDS: FUROSEMIDE 20 MG TAB PO SCH ×2 (06:51→18:13)
[2023-09-25 07:17] LABS: Urine Bacteria NONE SEEN /hpf (None Seen); Urine Blood Negative /uL (Negative); Urine Clarity HAZY (Clear); Urine Color Yellow (Yellow); Urine Protein, UAD TRACE (Negative); Urine Specific Gravity 1.017 (1.001-1.035); Urine Urobilinogen Normal (Negative); Urine WBC 2 /hpf (0 - 3); Urine pH 7.5 (5.0-8.0)
[2023-09-25] MEDS: ENOXAPARIN SOD 40 MG/0.4 ML SYRINGE SC SCH (09:52)
[2023-09-25] MEDS ORDERED: FLUT1AER3 IN (11:41)
[2023-09-25] MEDS ORDERED: MUPI2OIN2 EX (11:41)
[2023-09-25] MEDS: guaiFENesin-DM 100/10mg/5ml SYR PO SCH ×2 (18:00→21:26)
[2023-09-25] MEDS ORDERED: ALBUTEROL MEDNEB 2.5 mg/3ml NEB ONE (18:14)
[2023-09-25] MEDS: IPRATROPIUM BROM 0.5 MG/2.5ML INH SOL NEB SCH (18:30)
[2023-09-25] MEDS: ALBUTEROL SULF 2.5 MG/0.5ML(0.5%) NEB SOLN NEB SCH (18:30)
[2023-09-25] MEDS: BUDESONIDE (INHALATION) 0.5 MG/2 ML NEB NEB SCH (18:30)
[2023-09-25] MEDS: ACETYLCYSTEINE 10 %(100MG/ML) SOL 4ML NEB SCH (18:30)
[2023-09-25] MEDS: methylPREDNISolone SOD SUCC 40 MG/ML VL IV SCH (21:26)
[2023-09-25] MEDS: MUPIROCIN 2% OINT 15gm or 22gm TOP SCH (21:26)
[2023-09-25] MEDS: levoFLOXacin 500MG 100 ML IV SCH (21:26)
[2023-09-25] MEDS: ATORVASTATIN 20 MG TAB PO SCH (22:35)
[2023-09-26] VITALS (12 sets, daily range): BP systolic 102–132; BP diastolic 51–73; PULSE 62–112; RESP 16–19; TEMP 97.5–99.2; O2SAT 92–100
[2023-09-26] MEDS: guaiFENesin-DM 100/10mg/5ml SYR PO SCH ×4 (06:00→22:00)
[2023-09-26] MEDS: FUROSEMIDE 20 MG TAB PO SCH ×2 (06:13→18:23)
[2023-09-26] MEDS: BUDESONIDE (INHALATION) 0.5 MG/2 ML NEB NEB SCH ×2 (06:43→19:21)
[2023-09-26] MEDS: ALBUTEROL SULF 2.5 MG/0.5ML(0.5%) NEB SOLN NEB SCH ×3 (06:43→19:21)
[2023-09-26] MEDS: IPRATROPIUM BROM 0.5 MG/2.5ML INH SOL NEB SCH ×3 (06:43→19:21)
[2023-09-26] MEDS: ACETYLCYSTEINE 10 %(100MG/ML) SOL 4ML NEB SCH ×2 (06:43→12:18)
[2023-09-26] MEDS: methylPREDNISolone SOD SUCC 40 MG/ML VL IV SCH ×2 (10:25→22:38)
[2023-09-26] MEDS: ENOXAPARIN SOD 40 MG/0.4 ML SYRINGE SC SCH (10:25)
[2023-09-26] MEDS: MUPIROCIN 2% OINT 15gm or 22gm TOP SCH ×2 (14:26→22:41)
[2023-09-26] MEDS ORDERED: ALBUTEROL MEDNEB 2.5 mg/3ml NEB ONE (17:50)
[2023-09-26] MEDS: ATORVASTATIN 20 MG TAB PO SCH (22:32)
[2023-09-26] MEDS: levoFLOXacin 500MG 100 ML IV SCH (22:38)
[2023-09-27] VITALS (14 sets, daily range): BP systolic 103–136; BP diastolic 66–70; PULSE 70–91; RESP 16–19; TEMP 97.2–97.9; O2SAT 94–99
[2023-09-27] MEDS: FUROSEMIDE 20 MG TAB PO SCH ×2 (05:13→17:11)
[2023-09-27] MEDS: guaiFENesin-DM 100/10mg/5ml SYR PO SCH ×4 (05:13→22:00)
[2023-09-27] MEDS ORDERED: ALBUTEROL MEDNEB 2.5 mg/3ml NEB ONE ×2 (05:58→10:05)
[2023-09-27 06:07] LABS: Basophils # (auto) 0 10 ^3/uL (0-0.2); Basophils % (auto) 0.1 % (0.0-2.0); Eosinophils # (auto) 0 10 ^3/uL (0-0.8); Hemoglobin 14.3 g/dL (13.5-17.5); Lymphocytes # (auto) 1.5 10 ^3/uL (0.4-5.4); Lymphocytes % (auto) 12.5 % (10.0-50.0); Mean Corpuscular Hemoglobin 29.9 pg (28.0-32.0); Mean Corpuscular Hgb Conc. 33.3 g/dL (32.0-36.0); Mean Corpuscular Volume 89.8 fL (80.0-100.0); Monocytes # (auto) 0.2 10 ^3/uL (0-1.3); Monocytes % (auto) 1.9 % (0.0-12.0); Neutrophils # (auto) 9.9 10 ^3/uL (1.6-8.6); Neutrophils % (auto) 85.5 % (37.0-80.0); Nucleated Red Blood Cells % 0.2 %; Red Blood Cells 4.79 10^6/uL (4.5-5.90); Red Cell Distribution Width 14.1 % (11.8-14.3); White Blood Cell 11.6 10^3/uL (4.4-10.8)
[2023-09-27] MEDS: ALBUTEROL SULF 2.5 MG/0.5ML(0.5%) NEB SOLN NEB SCH ×3 (06:20→18:23)
[2023-09-27] MEDS: IPRATROPIUM BROM 0.5 MG/2.5ML INH SOL NEB SCH ×3 (06:20→18:23)
[2023-09-27 06:33] LABS: Anion Gap 6 (5-15); Carbon Dioxide 30 mmol/L (20-30); Chloride 98 mmol/L (98-107); Potassium 4.8 mmol/L (3.5-5.1); Sodium 134 mmol/L (136-145)
[2023-09-27 06:35] LABS: Calcium 9.3 mg/dL (8.7-10.4)
[2023-09-27 06:39] LABS: BUN/Creatinine Ratio 16.1 (10.0-20.0); Blood Urea Nitrogen 14 mg/dL (9-23); Glucose 185 mg/dL (74-106)
[2023-09-27] MEDS: methylPREDNISolone SOD SUCC 40 MG/ML VL IV SCH ×2 (08:35→22:04)
[2023-09-27] MEDS: ENOXAPARIN SOD 40 MG/0.4 ML SYRINGE SC SCH (08:35)
[2023-09-27] MEDS: MUPIROCIN 2% OINT 15gm or 22gm TOP SCH ×2 (08:35→22:04)
[2023-09-27] MEDS: BUDESONIDE (INHALATION) 0.5 MG/2 ML NEB NEB SCH ×2 (10:31→18:23)
[2023-09-27] MEDS: levoFLOXacin 500MG 100 ML IV SCH (21:59)
[2023-09-27] MEDS: ATORVASTATIN 20 MG TAB PO SCH (21:59)
[2023-09-28] VITALS (12 sets, daily range): BP systolic 110–117; BP diastolic 58–72; PULSE 60–88; RESP 17–18; TEMP 97.3–97.8; O2SAT 95–99
[2023-09-28] MEDS: guaiFENesin-DM 100/10mg/5ml SYR PO SCH ×4 (06:00→22:00)
[2023-09-28] MEDS: FUROSEMIDE 20 MG TAB PO SCH ×2 (06:31→17:19)
[2023-09-28] MEDS: IPRATROPIUM BROM 0.5 MG/2.5ML INH SOL NEB SCH ×3 (07:34→18:54)
[2023-09-28] MEDS: ALBUTEROL SULF 2.5 MG/0.5ML(0.5%) NEB SOLN NEB SCH ×3 (07:34→18:55)
[2023-09-28] MEDS: BUDESONIDE (INHALATION) 0.5 MG/2 ML NEB NEB SCH ×2 (07:35→18:54)
[2023-09-28] MEDS: ENOXAPARIN SOD 40 MG/0.4 ML SYRINGE SC SCH (08:36)
[2023-09-28] MEDS: MUPIROCIN 2% OINT 15gm or 22gm TOP SCH ×2 (08:36→22:23)
[2023-09-28] MEDS: methylPREDNISolone SOD SUCC 40 MG/ML VL IV SCH ×2 (08:36→22:19)
[2023-09-28 11:58] LABS: Basophils # (auto) 0 10 ^3/uL (0-0.2); Basophils % (auto) 0.3 % (0.0-2.0); Eosinophils # (auto) 0 10 ^3/uL (0-0.8); Hematocrit 44.7 % (41.0-53.0); Hemoglobin 14.8 g/dL (13.5-17.5); Lymphocytes # (auto) 1.3 10 ^3/uL (0.4-5.4); Mean Corpuscular Hemoglobin 29.5 pg (28.0-32.0); Mean Corpuscular Hgb Conc. 33.2 g/dL (32.0-36.0); Mean Corpuscular Volume 88.8 fL (80.0-100.0); Monocytes # (auto) 0.6 10 ^3/uL (0-1.3); Monocytes % (auto) 5.1 % (0.0-12.0); Neutrophils # (auto) 9.7 10 ^3/uL (1.6-8.6); Neutrophils % (auto) 83.6 % (37.0-80.0); Red Blood Cells 5.03 10^6/uL (4.5-5.90); Red Cell Distribution Width 14.2 % (11.8-14.3); White Blood Cell 11.6 10^3/uL (4.4-10.8)
[2023-09-28 12:11] LABS: Alanine Aminotransferase 16 U/L (7-40); Alkaline Phosphatase 77 U/L (46-116); Anion Gap 4 (5-15); Aspartate Aminotransferase 26 U/L (13-40); BUN/Creatinine Ratio 21.6 (10.0-20.0); Bilirubin, Total 0.5 mg/dL (0.2-1.0); Blood Urea Nitrogen 16 mg/dL (9-23); Carbon Dioxide 31 mmol/L (20-30); Chloride 98 mmol/L (98-107); Glucose 167 mg/dL (74-106); Magnesium 2.1 mg/dL (1.6-2.6); Potassium 4.3 mmol/L (3.5-5.1); Sodium 133 mmol/L (136-145); Total Protein 7.1 g/dL (5.7-8.2)
[2023-09-28 12:33] LABS: CRP High Sensitivity 0.16 mg/dL (<1.0)
[2023-09-28] MEDS ORDERED: ALBUTEROL MEDNEB 2.5 mg/3ml NEB ONE (18:21)
[2023-09-28] MEDS: ATORVASTATIN 20 MG TAB PO SCH (22:19)
[2023-09-28] MEDS: levoFLOXacin 500MG 100 ML IV SCH (22:23)
[2023-09-29] VITALS (8 sets, daily range): BP systolic 120; BP diastolic 70–74; PULSE 68–78; RESP 17–23; TEMP 36.7; O2SAT 93–97
[2023-09-29 05:07] LABS: Basophils # (auto) 0 10 ^3/uL (0-0.2); Basophils % (auto) 0.1 % (0.0-2.0); Eosinophils # (auto) 0 10 ^3/uL (0-0.8); Hematocrit 43.5 % (41.0-53.0); Hemoglobin 14.4 g/dL (13.5-17.5); Lymphocytes # (auto) 1.2 10 ^3/uL (0.4-5.4); Lymphocytes % (auto) 12.4 % (10.0-50.0); Mean Corpuscular Hemoglobin 29.7 pg (28.0-32.0); Mean Corpuscular Hgb Conc. 33.1 g/dL (32.0-36.0); Mean Corpuscular Volume 89.7 fL (80.0-100.0); Monocytes # (auto) 0.2 10 ^3/uL (0-1.3); Neutrophils # (auto) 8.6 10 ^3/uL (1.6-8.6); Neutrophils % (auto) 85.5 % (37.0-80.0); Red Blood Cells 4.85 10^6/uL (4.5-5.90); Red Cell Distribution Width 14.2 % (11.8-14.3); White Blood Cell 10.1 10^3/uL (4.4-10.8)
[2023-09-29 05:10] LABS: Chloride 101 mmol/L (98-107); Potassium 4.4 mmol/L (3.5-5.1); Sodium 135 mmol/L (136-145)
[2023-09-29 05:11] LABS: Anion Gap 3 (5-15); Calcium 8.8 mg/dL (8.7-10.4); Carbon Dioxide 31 mmol/L (20-30)
[2023-09-29 05:16] LABS: Glucose 180 mg/dL (74-106)
[2023-09-29 05:17] LABS: BUN/Creatinine Ratio 21.1 (10.0-20.0); Blood Urea Nitrogen 16 mg/dL (9-23); Magnesium 2.1 mg/dL (1.6-2.6)
[2023-09-29] MEDS: IPRATROPIUM BROM 0.5 MG/2.5ML INH SOL NEB SCH ×2 (06:00→12:09)
[2023-09-29] MEDS: ALBUTEROL SULF 2.5 MG/0.5ML(0.5%) NEB SOLN NEB SCH ×2 (06:00→12:10)
[2023-09-29] MEDS: guaiFENesin-DM 100/10mg/5ml SYR PO SCH ×2 (06:00→13:25)
[2023-09-29] MEDS ORDERED: ALBUTEROL MEDNEB 2.5 mg/3ml NEB ONE (06:08)
[2023-09-29] MEDS: FUROSEMIDE 20 MG TAB PO SCH (06:51)
[2023-09-29] MEDS: ENOXAPARIN SOD 40 MG/0.4 ML SYRINGE SC SCH (09:24)
[2023-09-29] MEDS: methylPREDNISolone SOD SUCC 40 MG/ML VL IV SCH (09:25)
[2023-09-29] MEDS ORDERED: PRED20TA2 PO (10:30)
[2023-09-29] MEDS ORDERED: LEVO750T40 PO (10:30)
[2023-09-29] MEDS: BUDESONIDE (INHALATION) 0.5 MG/2 ML NEB NEB SCH (12:10)
[2023-09-29] MEDS: MUPIROCIN 2% OINT 15gm or 22gm TOP SCH (13:24)
== END 2023-09-29 14:45 | disposition home or self-care (01) | DRG 177 ==
LOC: ER 15:19 → TELE 21:11 → TELE-CENTR 23:43 → CENTRAL 09-26 22:24
PROVIDERS: ADMIT Internal Medicine Pulmonary Disease; ATTEND Student in an Organized Health Care Education/Training Program
DX: J15.69 Pneumonia due to other Gram-negative bacteria (principal); J96.21 Acute and chronic respiratory failure with hypoxia; J44.0 Chronic obstructive pulmonary disease with (acute) lower respiratory infection; L03.313 Cellulitis of chest wall; I50.32 Chronic diastolic (congestive) heart failure; I11.0 Hypertensive heart disease with heart failure; J84.10 Pulmonary fibrosis, unspecified; Z20.822 Contact with and (suspected) exposure to COVID-19; I27.20 Pulmonary hypertension, unspecified; I73.9 Peripheral vascular disease, unspecified; Z88.1 Allergy status to other antibiotic agents; Z90.49 Acquired absence of other specified parts of digestive tract
CPT/HCPCS: 36415; 71045; 80048; 80053; 81001; 83605; 83735; 83880; 84484; 85025; 85379; 85610; 85730; 86141; 87040; 87426; 87804; 93005; 94640; G0378; J1956

== ENCOUNTER → 2023-10-17 | Outpatient (CLI) | payer OTHER ==
[~2023-10-17] MED LIST changes: +ALBUTEROL SULF 2.5 MG/0.5ML(0.5%) NEB SOLN ONE; -AUG875T PO; -DOXY-286 PO; +FLUT1AER3 IN; -LEVO500T91 PO; +MUPI2OIN2 EX; -PRED10TA PO
== END | disposition home or self-care (01) ==
LOC: RT 14:54
PROVIDERS: ATTEND Internal Medicine Pulmonary Disease
DX: J84.10 Pulmonary fibrosis, unspecified (principal)
CPT/HCPCS: 94060; 94727; 94729

== ENCOUNTER 2023-11-02 09:40 | Inpatient (IN) | payer OTHER ==
[~2023-11-02] VITALS: Ht 160 cm; Wt 70.4 kg
[~2023-11-02 09:40] MED LIST changes: -ALBUTEROL SULF 2.5 MG/0.5ML(0.5%) NEB SOLN ONE
[2023-11-02 10:15] VITALS: RESP 20; O2SAT 97
[2023-11-02 10:30] LABS: Basophils # (auto) 0 10 ^3/uL (0-0.2); Basophils % (auto) 0.5 % (0.0-2.0); Eosinophils # (auto) 0.4 10 ^3/uL (0-0.8); Hematocrit 43.4 % (41.0-53.0); Hemoglobin 14.4 g/dL (13.5-17.5); Lymphocytes % (auto) 21.8 % (10.0-50.0); Mean Corpuscular Hemoglobin 29.8 pg (28.0-32.0); Mean Corpuscular Hgb Conc. 33.2 g/dL (32.0-36.0); Mean Corpuscular Volume 89.7 fL (80.0-100.0); Neutrophils # (auto) 5.7 10 ^3/uL (1.6-8.6); Neutrophils % (auto) 62.7 % (37.0-80.0); Nucleated Red Blood Cells % 0.1 %; Red Blood Cells 4.84 10^6/uL (4.5-5.90); Red Cell Distribution Width 13.7 % (11.8-14.3)
[2023-11-02] MEDS ORDERED: VANCOMYCIN 1GM/200ML 200 ML IV ONE (10:30)
[2023-11-02] MEDS ORDERED: FUROSEMIDE 40 MG/4 ML VIAL IV ONE (10:30)
[2023-11-02 10:43] LABS: Alanine Aminotransferase 11 U/L (7-40); Albumin 4.1 g/dL (3.2-4.8); Alkaline Phosphatase 92 U/L (46-116); Anion Gap 7 (5-15); Aspartate Aminotransferase 17 U/L (13-40); Bilirubin, Total 1.1 mg/dL (0.2-1.0); Carbon Dioxide 32 mmol/L (20-30); Chloride 96 mmol/L (98-107); Glucose 108 mg/dL (74-106); Potassium 4.3 mmol/L (3.5-5.1); Sodium 135 mmol/L (136-145)
[2023-11-02 10:44] LABS: Total Protein 7.6 g/dL (5.7-8.2)
[2023-11-02 10:51] LABS: Base Excess 8.1 mmol/L (-2.0-2.0)
[2023-11-02 11:09] LABS: Bilirubin, Direct 0.3 mg/dL (<0.3)
[2023-11-02 11:15] LABS: INR 1.13 (0.9-1.15); Prothrombin Time 11.8 sec (9.3-11.8)
[2023-11-02 11:17] LABS: BUN/Creatinine Ratio 6.3 (10.0-20.0); Blood Urea Nitrogen < 5 mg/dL (9-23)
[2023-11-02 12:05] LABS: Magnesium 1.9 mg/dL (1.6-2.6)
[2023-11-02] MEDS ORDERED: MORPHINE SULFATE INJ 2 MG/ml SYRG IV PRN (13:45)
[2023-11-02] MEDS ORDERED: ACETAMINOPHEN 325 MG TAB PO PRN (13:45)
[2023-11-02] MEDS ORDERED: DOCUSATE SOD 100 MG CAP PO PRN (13:45)
[2023-11-02] MEDS ORDERED: NITROGLYCERIN 0.4 MG SL TAB SL PRN (13:45)
[2023-11-02] MEDS ORDERED: ONDANSETRON HCL 4 MG/2 ML VIAL IV PRN (13:45)
[2023-11-02] MEDS ORDERED: ALBUTEROL SULF 2.5 MG/0.5ML(0.5%) NEB SOLN NEB PRN (14:00)
[2023-11-02] MEDS ORDERED: hydrALAZINE HCL 20 MG/ML VL IV PRN (14:00)
[2023-11-02] MEDS ORDERED: IPRATROPIUM BROM 0.5 MG/2.5ML INH SOL NEB PRN (14:00)
[2023-11-02 14:33] LABS: Urine WBC None Seen /hpf (0 - 3)
[2023-11-02 15:01] LABS: Urine Bacteria NONE SEEN /hpf (None Seen); Urine Blood Negative /uL (Negative); Urine Clarity Clear (Clear); Urine Protein, UAD Negative (Negative); Urine Specific Gravity 1.003 (1.001-1.035); Urine Urobilinogen Normal (Negative); Urine pH 7.5 (5.0-8.0)
[2023-11-02 15:06] LABS: Urine Color Yellow (Yellow)
[2023-11-02 15:17] LABS: Rapid Influenza A Negative (Negative); Rapid Influenza B Negative (Negative)
[2023-11-02 15:18] LABS: COVID19 ANTIGEN SOFIA FIA NEGATIVE (NEGATIVE)
[2023-11-02] MEDS ORDERED: FUROSEMIDE 20 MG/2 ML VIAL IV SCH (18:00)
[2023-11-02 20:00] VITALS: PULSE 71
[2023-11-02] MEDS ORDERED: DOXY1CAP57 PO (20:30)
[2023-11-02 22:00] VITALS: BP 113/59; PULSE 74; O2SAT 99
[2023-11-02] MEDS ORDERED: ATORVASTATIN 20 MG TAB PO SCH (22:00)
[2023-11-02 22:23] VITALS: O2SAT 98
[2023-11-03] VITALS (9 sets, daily range): BP systolic 110–128; BP diastolic 59–71; PULSE 68–86; RESP 18–20; TEMP 36.7; O2SAT 93–100
[2023-11-03 06:45] LABS: Basophils # (auto) 0.1 10 ^3/uL (0-0.2); Basophils % (auto) 0.8 % (0.0-2.0); Eosinophils # (auto) 0.3 10 ^3/uL (0-0.8); Eosinophils % (auto) 4.5 % (0.0-7.0); Hemoglobin 12.7 g/dL (13.5-17.5); Lymphocytes # (auto) 1.8 10 ^3/uL (0.4-5.4); Lymphocytes % (auto) 24.1 % (10.0-50.0); Mean Corpuscular Hemoglobin 30.3 pg (28.0-32.0); Mean Corpuscular Hgb Conc. 34.2 g/dL (32.0-36.0); Mean Corpuscular Volume 88.8 fL (80.0-100.0); Monocytes # (auto) 0.9 10 ^3/uL (0-1.3); Monocytes % (auto) 11.3 % (0.0-12.0); Neutrophils # (auto) 4.5 10 ^3/uL (1.6-8.6); Neutrophils % (auto) 59.3 % (37.0-80.0); Red Blood Cells 4.17 10^6/uL (4.5-5.90); Red Cell Distribution Width 13.6 % (11.8-14.3); White Blood Cell 7.7 10^3/uL (4.4-10.8)
[2023-11-03 06:59] LABS: Albumin 3.4 g/dL (3.2-4.8); Alkaline Phosphatase 72 U/L (46-116); Anion Gap 4 (5-15); Aspartate Aminotransferase 15 U/L (13-40); BUN/Creatinine Ratio 14.3 (10.0-20.0); Blood Urea Nitrogen 9 mg/dL (9-23); Calcium 8.5 mg/dL (8.7-10.4); Carbon Dioxide 33 mmol/L (20-30); Chloride 98 mmol/L (98-107); Glucose 104 mg/dL (74-106); Potassium 3.9 mmol/L (3.5-5.1); Sodium 135 mmol/L (136-145)
[2023-11-03 07:00] LABS: Bilirubin, Total 0.6 mg/dL (0.2-1.0); Total Protein 6.2 g/dL (5.7-8.2)
[2023-11-03 07:11] LABS: Alanine Aminotransferase < 9 U/L (7-40)
[2023-11-03] MEDS ORDERED: cefTRIAXone 1GM/50ML D5W 50 ML IV SCH (09:00)
[2023-11-03] MEDS ORDERED: PANTOPRAZOLE 40 MG TAB PO SCH (10:00)
[2023-11-03] MEDS ORDERED: ASPirin-EC 81 mg tab PO SCH (10:00)
[2023-11-03] MEDS ORDERED: ENOXAPARIN SOD 40 MG/0.4 ML SYRINGE SC SCH (10:00)
[2023-11-03] MEDS ORDERED: BUDESONIDE (INHALATION) 0.5 MG/2 ML NEB NEB SCH (10:00)
[2023-11-03] MEDS ORDERED: DOX100T GT (11:55)
[2023-11-03] MEDS ORDERED: FURO1TAB31 PO (11:55)
[2023-11-03] MEDS ORDERED: POTA-180 PO (11:55)
[2023-11-03 11:56] LABS: Free T4 (Free Thyroxine) 0.86 ng/dL (0.89-1.76)
[2023-11-03] MEDS ORDERED: FUROSEMIDE 20 MG/2 ML VIAL IV ONE (13:30)
[2023-11-03] MEDS ORDERED: CYAN100056 PO (14:47)
[2023-11-03] MEDS ORDERED: CYANOCOBALAMIN (B-12) 1000 MCG/1 ML VIAL IM ONE (15:00)
== END 2023-11-03 15:21 | disposition home or self-care (01) | DRG 603 ==
LOC: ER 09:40 → TELE 13:46 → TELE-EAST 18:38
PROVIDERS: ADMIT Internal Medicine; ATTEND Internal Medicine
DX: L03.115 Cellulitis of right lower limb (principal); I50.42 Chronic combined systolic (congestive) and diastolic (congestive) heart failure; I11.0 Hypertensive heart disease with heart failure; L03.116 Cellulitis of left lower limb; L89.101 Pressure ulcer of unspecified part of back, stage 1; Z20.822 Contact with and (suspected) exposure to COVID-19; J84.10 Pulmonary fibrosis, unspecified; K21.9 Gastro-esophageal reflux disease without esophagitis; J44.9 Chronic obstructive pulmonary disease, unspecified; E78.5 Hyperlipidemia, unspecified; I87.2 Venous insufficiency (chronic) (peripheral); Z88.1 Allergy status to other antibiotic agents; Z88.8 Allergy status to other drugs, medicaments and biological substances; Z87.891 Personal history of nicotine dependence
CPT/HCPCS: 36415; 36600; 71045; 71250; 80053; 81001; 82248; 82306; 82607; 82805; 83605; 83735; 83880; 84439; 84443; 84484; 85025; 85610; 87040; 87426; 87804; 93005; 93970; 94640; 96365; 96375; 99291; G0378

== ENCOUNTER → 2023-11-13 | Outpatient (CLI) | payer OTHER ==
[~2023-11-13] MED LIST changes: +CYAN100056 PO; -DEXT1SYP9 PO; +DOX100T GT; -FUR20T PO; +FURO1TAB31 PO; -LEVO750T40 PO; -MUPI2OIN2 EX; +POTA-180 PO; -PRED20TA2 PO
[2023-11-13 11:14] LABS: Alanine Aminotransferase 20 U/L (7-40); Alkaline Phosphatase 83 U/L (46-116); Anion Gap 4 (5-15); Aspartate Aminotransferase 26 U/L (13-40); BUN/Creatinine Ratio 10.3 (10.0-20.0); Blood Urea Nitrogen 8 mg/dL (9-23); Calcium 9.9 mg/dL (8.5-10.1); Carbon Dioxide 37 mmol/L (20-30); Chloride 98 mmol/L (98-107); Glucose 109 mg/dL (74-106); Potassium 4.3 mmol/L (3.5-5.1); Prostate Specific Antigen 4.14 ng/mL (0.0-4.0); Sodium 139 mmol/L (136-145)
[2023-11-13 11:15] LABS: Bilirubin, Total 0.7 mg/dL (0.2-1.0); Total Protein 7.5 g/dL (5.7-8.2)
[2023-11-13 11:16] LABS: Basophils # (auto) 0.1 10 ^3/uL (0-0.2); Basophils % (auto) 0.9 % (0.0-2.0); Eosinophils # (auto) 0.4 10 ^3/uL (0-0.8); Eosinophils % (auto) 5.1 % (0.0-7.0); Hematocrit 42.3 % (41.0-53.0); Hemoglobin 14.3 g/dL (13.5-17.5); Lymphocytes # (auto) 2.1 10 ^3/uL (0.4-5.4); Lymphocytes % (auto) 24.6 % (10.0-50.0); Mean Corpuscular Hemoglobin 30.3 pg (28.0-32.0); Mean Corpuscular Hgb Conc. 33.7 g/dL (32.0-36.0); Mean Corpuscular Volume 89.8 fL (80.0-100.0); Monocytes # (auto) 0.7 10 ^3/uL (0-1.3); Neutrophils # (auto) 5.2 10 ^3/uL (1.6-8.6); Neutrophils % (auto) 61.4 % (37.0-80.0); Red Blood Cells 4.71 10^6/uL (4.5-5.90); Red Cell Distribution Width 13.9 % (11.8-14.3); White Blood Cell 8.5 10^3/uL (4.4-10.8)
[2023-11-13 11:19] LABS: T3 Total 1.27 ng/mL (0.60-1.81)
[2023-11-13 11:20] LABS: Free T4 (Free Thyroxine) 0.9 ng/dL (0.89-1.76)
[2023-11-13 12:00] LABS: Magnesium 2.1 mg/dL (1.6-2.6)
[2023-11-13 15:13] LABS: Urine Bacteria NONE SEEN /hpf (None Seen); Urine Blood Negative /uL (Negative); Urine Clarity HAZY (Clear); Urine Color Yellow (Yellow); Urine Protein, UAD TRACE (Negative); Urine Specific Gravity 1.018 (1.001-1.035); Urine WBC 5 /hpf (0 - 3); Urine pH 7.5 (5.0-8.0)
[2023-11-14 08:06] LABS: PSA Free 1.41 ng/mL; Prostate Specific Antigen 4.3 ng/mL (0.0-4.0)
== END | disposition home or self-care (01) ==
LOC: LAB 09:57
PROVIDERS: ATTEND Nurse Practitioner Gerontology
DX: Z13.1 Encounter for screening for diabetes mellitus (principal); Z29.9 Encounter for prophylactic measures, unspecified; I11.0 Hypertensive heart disease with heart failure; I50.9 Heart failure, unspecified
CPT/HCPCS: 36415; 80053; 81001; 83036; 83735; 84153; 84154; 84439; 84443; 84480; 85025; 87086; 87088; 87186

== ENCOUNTER 2023-12-24 11:08 | Inpatient (IN) | payer OTHER ==
[~2023-12-24] VITALS: Ht 162.6 cm; Wt 75.0 kg
[2023-12-24 12:58] LABS: Basophils # (auto) 0 10 ^3/uL (0-0.2); Basophils % (auto) 0.5 % (0.0-2.0); Eosinophils # (auto) 0.6 10 ^3/uL (0-0.8); Eosinophils % (auto) 5.9 % (0.0-7.0); Hematocrit 42.7 % (41.0-53.0); Hemoglobin 14.3 g/dL (13.5-17.5); Lymphocytes # (auto) 1.9 10 ^3/uL (0.4-5.4); Lymphocytes % (auto) 18.6 % (10.0-50.0); Mean Corpuscular Hemoglobin 29.8 pg (28.0-32.0); Mean Corpuscular Hgb Conc. 33.4 g/dL (32.0-36.0); Mean Corpuscular Volume 89.2 fL (80.0-100.0); Monocytes # (auto) 0.8 10 ^3/uL (0-1.3); Monocytes % (auto) 8.1 % (0.0-12.0); Neutrophils # (auto) 6.8 10 ^3/uL (1.6-8.6); Neutrophils % (auto) 66.9 % (37.0-80.0); Nucleated Red Blood Cells % 0.2 %; Red Blood Cells 4.79 10^6/uL (4.5-5.90); Red Cell Distribution Width 13.9 % (11.8-14.3); White Blood Cell 10.1 10^3/uL (4.4-10.8)
[2023-12-24 13:12] LABS: Alanine Aminotransferase 12 U/L (7-40); Albumin 4.6 g/dL (3.2-4.8); Alkaline Phosphatase 99 U/L (46-116); Anion Gap 3 (5-15); Aspartate Aminotransferase 20 U/L (13-40); BUN/Creatinine Ratio 19.2 (10.0-20.0); Bilirubin, Total 0.9 mg/dL (0.2-1.0); Blood Urea Nitrogen 14 mg/dL (9-23); Calcium 10.1 mg/dL (8.5-10.1); Carbon Dioxide 36 mmol/L (20-30); Chloride 97 mmol/L (98-107); Glucose 98 mg/dL (74-106); Sodium 136 mmol/L (136-145); Total Protein 7.8 g/dL (5.7-8.2)
[2023-12-24 13:20] LABS: CRP High Sensitivity 1.48 mg/dL (<1.0)
[2023-12-24 14:35] LABS: Erythrocyte Sedimentation Rate 58 mm/hr (0-20)
[2023-12-24] MEDS: VANCOMYCIN PER PHARMACY 0 MG IV SCH (15:41)
[2023-12-24] MEDS: VANCOMYCIN 1GM/200ML 200 ML IV ONE (15:45)
[2023-12-24] MEDS ORDERED: VANCOMYCIN PER PHARMACY 0 MG IV SCH (16:15)
[2023-12-24] MEDS ORDERED: MORPHINE SULFATE INJ 2 MG/ml SYRG IV PRN (16:15)
[2023-12-24] MEDS ORDERED: ONDANSETRON HCL 4 MG/2 ML VIAL IV PRN (16:15)
[2023-12-24] MEDS ORDERED: ACETAMINOPHEN 500 MG TAB PO PRN (16:15)
[2023-12-24 18:33] VITALS: PULSE 71; RESP 18; O2SAT 100
[2023-12-24] MEDS: BUDESONIDE (INHALATION) 0.5 MG/2 ML NEB NEB SCH (18:33)
[2023-12-24] MEDS: ALBUTEROL SULF 2.5 MG/0.5ML(0.5%) NEB SOLN NEB SCH (18:33)
[2023-12-24] MEDS: IPRATROPIUM BROM 0.5 MG/2.5ML INH SOL NEB SCH (18:33)
[2023-12-24 18:43] VITALS: PULSE 72; RESP 18; O2SAT 100
[2023-12-24 19:35] VITALS: BP 107/54; PULSE 72; RESP 18; TEMP 98.4; O2SAT 100
[2023-12-24 20:00] VITALS: PULSE 78; RESP 22; O2SAT 98
[2023-12-24] MEDS: ATORVASTATIN 20 MG TAB PO SCH (21:43)
[2023-12-24 22:00] VITALS: BP 132/53; PULSE 78; RESP 22; TEMP 98.1; O2SAT 98
[2023-12-24] MEDS: levoFLOXacin 500MG 100 ML IV SCH (22:59)
[2023-12-24] MEDS: HYDROcodone-ACET 5/325MG TAB PO PRN (23:22)
[2023-12-24] MEDS: FUROSEMIDE 40 MG/4 ML VIAL IV ONE (23:23)
[2023-12-25] VITALS (14 sets, daily range): BP systolic 103–112; BP diastolic 55–70; PULSE 68–87; RESP 16–22; TEMP 97.5–97.9; O2SAT 94–100
[2023-12-25] MEDS: VANCOMYCIN 1GM/200ML 200 ML IV SCH (08:03)
[2023-12-25] MEDS: PANTOPRAZOLE 40 MG TAB PO SCH (10:17)
[2023-12-25] MEDS: ASPirin-EC 81 mg tab PO SCH (10:17)
[2023-12-26] VITALS (13 sets, daily range): BP systolic 102–124; BP diastolic 60–67; PULSE 68–81; RESP 18–22; TEMP 97.4–98.2; O2SAT 92–99
[2023-12-26 06:50] LABS: Calcium 9.8 mg/dL (8.5-10.1); Chloride 98 mmol/L (98-107); Sodium 137 mmol/L (136-145)
[2023-12-26 06:51] LABS: Anion Gap 3 (5-15); Carbon Dioxide 36 mmol/L (20-30)
[2023-12-26 06:56] LABS: BUN/Creatinine Ratio 11.4 (10.0-20.0); Blood Urea Nitrogen 8 mg/dL (9-23); Glucose 136 mg/dL (74-106)
[2023-12-26 06:59] LABS: Basophils # (auto) 0.1 10 ^3/uL (0-0.2); Basophils % (auto) 0.6 % (0.0-2.0); Eosinophils # (auto) 0.6 10 ^3/uL (0-0.8); Hematocrit 40.4 % (41.0-53.0); Hemoglobin 13.5 g/dL (13.5-17.5); Lymphocytes # (auto) 1.4 10 ^3/uL (0.4-5.4); Lymphocytes % (auto) 16.6 % (10.0-50.0); Mean Corpuscular Hemoglobin 29.8 pg (28.0-32.0); Mean Corpuscular Hgb Conc. 33.5 g/dL (32.0-36.0); Mean Corpuscular Volume 88.9 fL (80.0-100.0); Monocytes # (auto) 0.7 10 ^3/uL (0-1.3); Monocytes % (auto) 9.1 % (0.0-12.0); Neutrophils # (auto) 5.5 10 ^3/uL (1.6-8.6); Neutrophils % (auto) 66.7 % (37.0-80.0); Red Blood Cells 4.55 10^6/uL (4.5-5.90); Red Cell Distribution Width 14.1 % (11.8-14.3); White Blood Cell 8.2 10^3/uL (4.4-10.8)
[2023-12-26 08:36] LABS: Erythrocyte Sedimentation Rate 47 mm/hr (0-20)
[2023-12-26] MEDS ORDERED: LORazepam 2MG/ML-1ML VIAL IV ONE (10:45)
[2023-12-27] VITALS (9 sets, daily range): BP systolic 99–132; BP diastolic 53–65; PULSE 68–76; RESP 18–22; TEMP 97.7–97.9; O2SAT 94–100
[2023-12-27 05:54] LABS: Basophils # (auto) 0 10 ^3/uL (0-0.2); Basophils % (auto) 0.5 % (0.0-2.0); Eosinophils # (auto) 0.6 10 ^3/uL (0-0.8); Eosinophils % (auto) 7.1 % (0.0-7.0); Hematocrit 39.7 % (41.0-53.0); Hemoglobin 13.2 g/dL (13.5-17.5); Lymphocytes # (auto) 1.6 10 ^3/uL (0.4-5.4); Lymphocytes % (auto) 19.4 % (10.0-50.0); Mean Corpuscular Hemoglobin 29.8 pg (28.0-32.0); Mean Corpuscular Hgb Conc. 33.4 g/dL (32.0-36.0); Mean Corpuscular Volume 89.1 fL (80.0-100.0); Monocytes # (auto) 0.8 10 ^3/uL (0-1.3); Monocytes % (auto) 9.6 % (0.0-12.0); Neutrophils # (auto) 5.1 10 ^3/uL (1.6-8.6); Neutrophils % (auto) 63.4 % (37.0-80.0); Red Blood Cells 4.45 10^6/uL (4.5-5.90); White Blood Cell 8.1 10^3/uL (4.4-10.8)
[2023-12-27 05:58] LABS: Anion Gap 1 (5-15); Carbon Dioxide 37 mmol/L (20-30); Chloride 97 mmol/L (98-107); Potassium 4.9 mmol/L (3.5-5.1); Sodium 135 mmol/L (136-145)
[2023-12-27 05:59] LABS: Calcium 9.5 mg/dL (8.7-10.4)
[2023-12-27 06:04] LABS: BUN/Creatinine Ratio 9.4 (10.0-20.0); Blood Urea Nitrogen 6 mg/dL (9-23); Glucose 106 mg/dL (74-106)
[2023-12-27] MEDS ORDERED: DOXY1CAP57 PO (13:04)
[2023-12-27] MEDS ORDERED: CLIN300C70 PO (13:04)
== END 2023-12-27 15:00 | disposition home or self-care (01) | DRG 602 ==
LOC: ER 11:08 → OVERFLOW 16:14 → CENTRAL 18:03 → OBSVTOIN 12-25 09:05
PROVIDERS: ADMIT Nurse Practitioner Acute Care; ATTEND Nurse Practitioner Acute Care
DX: L03.116 Cellulitis of left lower limb (principal); I50.33 Acute on chronic diastolic (congestive) heart failure; J96.21 Acute and chronic respiratory failure with hypoxia; L97.929 Non-pressure chronic ulcer of unspecified part of left lower leg with unspecified severity; I83.029 Varicose veins of left lower extremity with ulcer of unspecified site; I11.0 Hypertensive heart disease with heart failure; L03.115 Cellulitis of right lower limb; K21.9 Gastro-esophageal reflux disease without esophagitis; E78.5 Hyperlipidemia, unspecified; J84.10 Pulmonary fibrosis, unspecified; I89.0 Lymphedema, not elsewhere classified; Z88.1 Allergy status to other antibiotic agents; Z99.81 Dependence on supplemental oxygen; Z90.49 Acquired absence of other specified parts of digestive tract; Z87.891 Personal history of nicotine dependence
CPT/HCPCS: 36415; 73721; 80048; 80053; 80202; 83605; 83880; 84484; 85025; 85652; 86141; 87040; 93971; 94640; 96365; 96367; 96375; G0378; J1956

== ENCOUNTER 2023-12-31 14:08 | Inpatient (IN) | payer OTHER ==
[~2023-12-31] VITALS: Ht 162.6 cm; Wt 68.9 kg
[~2023-12-31 14:08] MED LIST changes: +CLIN300C70 PO; +DOXY1CAP57 PO
[2023-12-31] MEDS: methylPREDNISolone SOD SUCC 125 MG/2 ML VL IV ONE (15:41)
[2023-12-31 15:52] LABS: Basophils # (auto) 0.1 10 ^3/uL (0-0.2); Eosinophils # (auto) 0.6 10 ^3/uL (0-0.8); Eosinophils % (auto) 7.2 % (0.0-7.0); Hemoglobin 13.9 g/dL (13.5-17.5); Lymphocytes # (auto) 1.5 10 ^3/uL (0.4-5.4); Lymphocytes % (auto) 16.3 % (10.0-50.0); Mean Corpuscular Hemoglobin 29.9 pg (28.0-32.0); Mean Corpuscular Hgb Conc. 33.8 g/dL (32.0-36.0); Mean Corpuscular Volume 88.3 fL (80.0-100.0); Monocytes # (auto) 0.8 10 ^3/uL (0-1.3); Monocytes % (auto) 8.4 % (0.0-12.0); Neutrophils # (auto) 6.1 10 ^3/uL (1.6-8.6); Neutrophils % (auto) 67.1 % (37.0-80.0); Red Blood Cells 4.64 10^6/uL (4.5-5.90); Red Cell Distribution Width 14.2 % (11.8-14.3)
[2023-12-31 16:53] LABS: Chloride 99 mmol/L (98-107); Potassium 4.3 mmol/L (3.5-5.1); Sodium 136 mmol/L (136-145)
[2023-12-31 16:54] LABS: Anion Gap 4 (5-15); Carbon Dioxide 33 mmol/L (20-30)
[2023-12-31 16:55] LABS: Calcium 9.5 mg/dL (8.7-10.4)
[2023-12-31 16:59] LABS: Glucose 94 mg/dL (74-106)
[2023-12-31 17:00] LABS: BUN/Creatinine Ratio 11.4 (10.0-20.0); Blood Urea Nitrogen 8 mg/dL (9-23)
[2023-12-31] MEDS: NEOMYCIN-POLYMY-DEXAMETH 0.1% OPTH(EYE) SUSP 5ML EACHEYE SCH (17:15)
[2023-12-31] MEDS ORDERED: ONDANSETRON HCL 4 MG/2 ML VIAL IV PRN (18:45)
[2023-12-31] MEDS: [UNRECOGNIZED DRUG - OTHER] IN SCH (18:45)
[2023-12-31] MEDS ORDERED: MORPHINE SULFATE INJ 2 MG/ml SYRG IV PRN (18:45)
[2023-12-31] MEDS ORDERED: DOCUSATE SOD 100 MG CAP PO PRN (18:45)
[2023-12-31] MEDS: TRELEGY ELLIPTA IN SCH (18:45)
[2023-12-31] MEDS ORDERED: ACETAMINOPHEN 325 MG TAB PO PRN (18:45)
[2023-12-31] MEDS ORDERED: HYDROcodone-ACET 5/325MG TAB PO PRN (18:45)
[2023-12-31] MEDS ORDERED: NITROGLYCERIN 0.4 MG SL TAB SL PRN (18:45)
[2023-12-31] MEDS: FUROSEMIDE 20 MG/2 ML VIAL IV ONE (19:01)
[2023-12-31] MEDS: DOXYCYCLINE 100MG/250ML 250 ML IV SCH (21:28)
[2023-12-31 22:13] VITALS: BP 108/64; PULSE 75; RESP 18; TEMP 97.9; O2SAT 99
[2023-12-31] MEDS: ATORVASTATIN 20 MG TAB PO SCH (22:21)
[2023-12-31] MEDS: methylPREDNISolone SOD SUCC 125 MG/2 ML VL IV SCH (23:05)
[2023-12-31 23:26] VITALS: PULSE 75; RESP 20; O2SAT 99
[2024-01-01] VITALS (10 sets, daily range): BP systolic 111–123; BP diastolic 64–75; PULSE 77–98; RESP 16–20; TEMP 97.4–98; O2SAT 95–99
[2024-01-01 00:23] LABS: Urine Bacteria NONE SEEN /hpf (None Seen); Urine Blood Negative /uL (Negative); Urine Clarity Clear (Clear); Urine Hyaline Cast MOD /lpf (0 - 2); Urine Protein, UAD Negative (Negative); Urine Urobilinogen Normal (Negative); Urine WBC <1 /hpf (0 - 3)
[2024-01-01 00:37] LABS: Urine Color STRAW (Yellow)
[2024-01-01] MEDS ORDERED: DOXYCYCLINE 100MG/250ML 250 ML IV SCH (03:00)
[2024-01-01] MEDS: FUROSEMIDE 20 MG/2 ML VIAL IV SCH (06:18)
[2024-01-01] MEDS: CYANOCOBALAMIN 500 MCG TAB PO SCH (06:21)
[2024-01-01 07:26] LABS: Basophils # (auto) 0 10 ^3/uL (0-0.2); Basophils % (auto) 0.1 % (0.0-2.0); Eosinophils # (auto) 0 10 ^3/uL (0-0.8); Hematocrit 39.3 % (41.0-53.0); Hemoglobin 13.2 g/dL (13.5-17.5); Lymphocytes # (auto) 0.8 10 ^3/uL (0.4-5.4); Lymphocytes % (auto) 14.6 % (10.0-50.0); Mean Corpuscular Hemoglobin 29.6 pg (28.0-32.0); Mean Corpuscular Hgb Conc. 33.5 g/dL (32.0-36.0); Mean Corpuscular Volume 88.5 fL (80.0-100.0); Monocytes # (auto) 0.1 10 ^3/uL (0-1.3); Monocytes % (auto) 1.8 % (0.0-12.0); Neutrophils # (auto) 4.4 10 ^3/uL (1.6-8.6); Neutrophils % (auto) 83.5 % (37.0-80.0); Nucleated Red Blood Cells % 0.1 %; Red Blood Cells 4.44 10^6/uL (4.5-5.90); Red Cell Distribution Width 13.9 % (11.8-14.3); White Blood Cell 5.3 10^3/uL (4.4-10.8)
[2024-01-01] MEDS: IPRATROPIUM BROM 0.5 MG/2.5ML INH SOL NEB PRN (07:28)
[2024-01-01] MEDS: ALBUTEROL SULF 2.5 MG/0.5ML(0.5%) NEB SOLN NEB PRN (07:28)
[2024-01-01 07:41] LABS: Alanine Aminotransferase 10 U/L (7-40); Albumin 3.8 g/dL (3.2-4.8); Alkaline Phosphatase 83 U/L (46-116); Anion Gap 5 (5-15); Aspartate Aminotransferase 19 U/L (13-40); BUN/Creatinine Ratio 20.8 (10.0-20.0); Bilirubin, Total 0.6 mg/dL (0.2-1.0); Blood Urea Nitrogen 16 mg/dL (9-23); Calcium 9.5 mg/dL (8.5-10.1); Carbon Dioxide 36 mmol/L (20-30); Chloride 95 mmol/L (98-107); Potassium 4.2 mmol/L (3.5-5.1); Sodium 136 mmol/L (136-145); Total Protein 6.8 g/dL (5.7-8.2)
[2024-01-01 07:44] LABS: Glucose 197 mg/dL (74-106)
[2024-01-01] MEDS ORDERED: FUROSEMIDE 40 MG TAB PO SCH (10:00)
[2024-01-01] MEDS: ASPirin-EC 81 mg tab PO SCH (10:33)
[2024-01-01] MEDS: PANTOPRAZOLE 40 MG TAB PO SCH (10:33)
[2024-01-01] MEDS: DOXYCYCLINE 100MG/250ML 250 ML IV SCH (10:49)
[2024-01-01] MEDS: FUROSEMIDE 20 MG/2 ML VIAL IV ONE (16:33)
== END 2024-01-01 18:08 | disposition home health service (06) | DRG 189 ==
LOC: EDUNIT# 14:08 → EDBD 14:08 → ER 14:08 → TELE 18:35 → ER 18:35 → TELE-WESTW 01-01 02:54
PROVIDERS: ADMIT Nurse Practitioner Family; ATTEND Internal Medicine
DX: J96.21 Acute and chronic respiratory failure with hypoxia (principal); J44.1 Chronic obstructive pulmonary disease with (acute) exacerbation; L03.90 Cellulitis, unspecified; J84.10 Pulmonary fibrosis, unspecified; I50.9 Heart failure, unspecified; I11.0 Hypertensive heart disease with heart failure; K21.9 Gastro-esophageal reflux disease without esophagitis; E78.5 Hyperlipidemia, unspecified; I20.9 Angina pectoris, unspecified; I27.20 Pulmonary hypertension, unspecified; Z88.1 Allergy status to other antibiotic agents; Z99.81 Dependence on supplemental oxygen; Z87.891 Personal history of nicotine dependence; Z90.49 Acquired absence of other specified parts of digestive tract
CPT/HCPCS: 36415; 71046; 80048; 80053; 81001; 84484; 85025; 87081; 93005; 93306; 94640; G0378; J3490

== ENCOUNTER 2024-02-03 12:49 | Inpatient (IN) | payer OTHER ==
[~2024-02-03] VITALS: Ht 162.6 cm; Wt 69.5 kg
[~2024-02-03 12:49] MED LIST changes: -CLIN300C70 PO; -DOX100T GT; -DOXY1CAP57 PO
[2024-02-03 12:55] VITALS: O2SAT 96
[2024-02-03 13:44] LABS: Basophils # (auto) 0 10 ^3/uL (0-0.2); Basophils % (auto) 0.5 % (0.0-2.0); Eosinophils # (auto) 0.5 10 ^3/uL (0-0.8); Eosinophils % (auto) 4.8 % (0.0-7.0); Hematocrit 43.2 % (41.0-53.0); Hemoglobin 14.3 g/dL (13.5-17.5); Lymphocytes % (auto) 10.6 % (10.0-50.0); Mean Corpuscular Hgb Conc. 33.2 g/dL (32.0-36.0); Mean Corpuscular Volume 90.4 fL (80.0-100.0); Monocytes # (auto) 0.7 10 ^3/uL (0-1.3); Monocytes % (auto) 7.7 % (0.0-12.0); Neutrophils # (auto) 7.2 10 ^3/uL (1.6-8.6); Neutrophils % (auto) 76.4 % (37.0-80.0); Red Blood Cells 4.78 10^6/uL (4.5-5.90); Red Cell Distribution Width 14.1 % (11.8-14.3); White Blood Cell 9.5 10^3/uL (4.4-10.8)
[2024-02-03] MEDS: FUROSEMIDE 40 MG/4 ML VIAL IV ONE (13:45)
[2024-02-03] MEDS: methylPREDNISolone SOD SUCC 125 MG/2 ML VL IV ONE (13:55)
[2024-02-03 14:03] LABS: Alanine Aminotransferase 14 U/L (7-40); Albumin 3.9 g/dL (3.2-4.8); Alkaline Phosphatase 101 U/L (46-116); Anion Gap 1 (5-15); Aspartate Aminotransferase 17 U/L (13-40); BUN/Creatinine Ratio 14.7 (10.0-20.0); Blood Urea Nitrogen 10 mg/dL (9-23); Calcium 9.7 mg/dL (8.7-10.4); Carbon Dioxide 38 mmol/L (20-30); Chloride 98 mmol/L (98-107); Glucose 112 mg/dL (74-106); Magnesium 1.9 mg/dL (1.6-2.6); Potassium 4.1 mmol/L (3.5-5.1); Sodium 137 mmol/L (136-145)
[2024-02-03 14:04] LABS: Bilirubin, Total 0.7 mg/dL (0.2-1.0); Total Protein 6.7 g/dL (5.7-8.2)
[2024-02-03 15:20] LABS: Urine Bacteria NONE SEEN /hpf (None Seen); Urine Blood Negative /uL (Negative); Urine Clarity Clear (Clear); Urine Color Colorless (Yellow); Urine Hyaline Cast FEW /lpf (0 - 2); Urine Protein, UAD Negative (Negative); Urine Specific Gravity 1.007 (1.001-1.035); Urine Urobilinogen Normal (Negative); Urine WBC 1 /hpf (0 - 3); Urine pH 7.5 (5.0-9.0)
[2024-02-03] MEDS ORDERED: DOCUSATE SOD 100 MG CAP PO PRN (15:30)
[2024-02-03] MEDS ORDERED: NITROGLYCERIN 0.4 MG SL TAB SL PRN (15:30)
[2024-02-03] MEDS ORDERED: ACETAMINOPHEN 325 MG TAB PO PRN (15:30)
[2024-02-03] MEDS ORDERED: HYDROcodone-ACET 5/325MG TAB PO PRN (15:30)
[2024-02-03] MEDS ORDERED: MORPHINE SULFATE INJ 2 MG/ml SYRG IV PRN ×2 (15:30)
[2024-02-03] MEDS ORDERED: ONDANSETRON HCL 4 MG/2 ML VIAL IV PRN (15:30)
[2024-02-03] MEDS: levoFLOXacin 750MG 150 ML IV ONE (16:04)
[2024-02-03 18:44] VITALS: PULSE 101; RESP 18; O2SAT 96
[2024-02-03] MEDS: LEVALBUTEROL HCL 1.25 MG/3 ML NEB NEB SCH (18:44)
[2024-02-03] MEDS: IPRATROPIUM BROM 0.5 MG/2.5ML INH SOL NEB SCH (18:44)
[2024-02-03 18:54] VITALS: PULSE 99; RESP 18; O2SAT 98
[2024-02-03 19:50] VITALS: PULSE 99; O2SAT 98
[2024-02-03 21:20] VITALS: O2SAT 95
[2024-02-03] MEDS: ATORVASTATIN 20 MG TAB PO SCH (21:58)
[2024-02-04] VITALS (14 sets, daily range): BP systolic 98–110; BP diastolic 53–69; PULSE 83–98; RESP 16–20; TEMP 97.3–98.4; O2SAT 95–100
[2024-02-04 05:58] LABS: Basophils # (auto) 0 10 ^3/uL (0-0.2); Basophils % (auto) 0.3 % (0.0-2.0); Eosinophils # (auto) 0 10 ^3/uL (0-0.8); Eosinophils % (auto) 0.1 % (0.0-7.0); Hemoglobin 13.7 g/dL (13.5-17.5); Lymphocytes # (auto) 0.8 10 ^3/uL (0.4-5.4); Lymphocytes % (auto) 15.5 % (10.0-50.0); Mean Corpuscular Hemoglobin 29.9 pg (28.0-32.0); Mean Corpuscular Hgb Conc. 33.4 g/dL (32.0-36.0); Mean Corpuscular Volume 89.6 fL (80.0-100.0); Monocytes # (auto) 0.3 10 ^3/uL (0-1.3); Monocytes % (auto) 5.4 % (0.0-12.0); Neutrophils # (auto) 4.1 10 ^3/uL (1.6-8.6); Neutrophils % (auto) 78.7 % (37.0-80.0); Nucleated Red Blood Cells % 0.1 %; Red Blood Cells 4.57 10^6/uL (4.5-5.90); Red Cell Distribution Width 14.1 % (11.8-14.3); White Blood Cell 5.2 10^3/uL (4.4-10.8)
[2024-02-04 06:11] LABS: Albumin 3.9 g/dL (3.2-4.8); Alkaline Phosphatase 93 U/L (46-116); Anion Gap 3 (5-15); Aspartate Aminotransferase 18 U/L (13-40); BUN/Creatinine Ratio 14.3 (10.0-20.0); Bilirubin, Total 0.7 mg/dL (0.2-1.0); Blood Urea Nitrogen 10 mg/dL (9-23); Calcium 9.7 mg/dL (8.5-10.1); Carbon Dioxide 36 mmol/L (20-30); Chloride 96 mmol/L (98-107); Glucose 148 mg/dL (74-106); Sodium 135 mmol/L (136-145); Total Protein 6.9 g/dL (5.7-8.2)
[2024-02-04 06:13] LABS: Alanine Aminotransferase < 9 U/L (7-40)
[2024-02-04 08:19] LABS: CRP High Sensitivity 2.37 mg/dL (<1.0)
[2024-02-04 08:59] LABS: INR 1.09 (0.9-1.15); Prothrombin Time 11.4 sec (9.3-11.8)
[2024-02-04 09:08] LABS: Magnesium 2.1 mg/dL (1.6-2.6)
[2024-02-04] MEDS: methylPREDNISolone SOD SUCC 40 MG/ML VL IV SCH (09:53)
[2024-02-04] MEDS: FUROSEMIDE 20 MG/2 ML VIAL IV SCH (09:53)
[2024-02-04] MEDS: ASPirin-EC 81 mg tab PO SCH (09:53)
[2024-02-04] MEDS: levoFLOXacin 750MG 150 ML IV SCH (09:54)
[2024-02-04] MEDS: POTASSIUM CHL 20 Meq TABLET PO SCH (09:54)
[2024-02-04] MEDS: PANTOPRAZOLE 40 MG TAB PO SCH (09:54)
[2024-02-04] MEDS ORDERED: methylPREDNISolone SOD SUCC 40 MG/ML VL IV SCH (10:00)
[2024-02-04] MEDS: DOXYCYCLINE 100MG/250ML 250 ML IV SCH (13:54)
[2024-02-04] MEDS: ENOXAPARIN SOD 40 MG/0.4 ML SYRINGE SC ONE (13:54)
[2024-02-04 14:08] LABS: Rapid Influenza A Negative (Negative); Rapid Influenza B Negative (Negative)
[2024-02-04] MEDS ORDERED: FURO40TA4 PO (14:09)
[2024-02-04] MEDS ORDERED: PANT40TA2 PO (14:09)
[2024-02-04] MEDS ORDERED: FLUT1AER17 INH (14:13)
[2024-02-04] MEDS ORDERED: IPRA0.00 NEB (14:13)
[2024-02-04] MEDS ORDERED: ALBU1AER4 INH (14:13)
[2024-02-04] MEDS: IPRATROPIUM BROM 0.5 MG/2.5ML INH SOL NEB SCH (14:25)
[2024-02-04] MEDS: LEVALBUTEROL HCL 1.25 MG/3 ML NEB NEB SCH (14:25)
[2024-02-04] MEDS ORDERED: PRED20TA2 PO (14:31)
[2024-02-04] MEDS ORDERED: DOXY1CAP57 PO (14:31)
[2024-02-04] MEDS ORDERED: FUROSEMIDE 20 MG/2 ML VIAL IV SCH (22:00)
[2024-02-05] MEDS ORDERED: ENOXAPARIN SOD 40 MG/0.4 ML SYRINGE SC SCH (10:00)
== END 2024-02-04 18:36 | disposition home or self-care (01) | DRG 177 ==
LOC: ER 12:49 → EDBD 12:49 → TELE 15:23 → TELE-WESTW 23:35
PROVIDERS: ADMIT Internal Medicine; ATTEND Internal Medicine
DX: J15.69 Pneumonia due to other Gram-negative bacteria (principal); I50.33 Acute on chronic diastolic (congestive) heart failure; J96.21 Acute and chronic respiratory failure with hypoxia; J96.22 Acute and chronic respiratory failure with hypercapnia; J44.1 Chronic obstructive pulmonary disease with (acute) exacerbation; J15.9 Unspecified bacterial pneumonia; K21.9 Gastro-esophageal reflux disease without esophagitis; I11.0 Hypertensive heart disease with heart failure; E78.5 Hyperlipidemia, unspecified; J84.10 Pulmonary fibrosis, unspecified; F41.9 Anxiety disorder, unspecified; I27.20 Pulmonary hypertension, unspecified; I73.9 Peripheral vascular disease, unspecified; Z88.1 Allergy status to other antibiotic agents; Z86.73 Personal history of transient ischemic attack (TIA), and cerebral infarction without residual deficits; Z87.891 Personal history of nicotine dependence; Z90.49 Acquired absence of other specified parts of digestive tract
CPT/HCPCS: 36415; 71045; 71250; 80053; 80061; 81001; 83605; 83735; 83880; 84443; 84484; 85025; 85379; 85610; 86141; 87040; 87081; 87804; 93005; 93970; 94640; 96374; 96375; 99291; G0378; J1956; J3490

== ENCOUNTER 2024-02-29 14:56 | Inpatient (IN) | payer OTHER ==
[~2024-02-29] VITALS: Ht 162.6 cm; Wt 73.0 kg
[~2024-02-29 14:56] MED LIST changes: +ALBU1AER4 INH; +AMOX875T4 PO; +AZIT-43 PO; -CYAN100056 PO; +DOXY1CAP57 PO; +FLUT1AER17 INH; -FLUT1AER3 IN; -FURO1TAB31 PO; +FURO40TA4 PO; +IPRA0.00 NEB; -PANT40T PO; +PANT40TA2 PO; +PRED20TA2 PO
[2024-02-29] MEDS: DexAMETHasone SOD PHOS 10MG/1ML VIAL INJ IM ONE (16:18)
[2024-02-29] MEDS: IPRATROPIUM BROM 0.5 MG/2.5ML INH SOL NEB ONE (16:24)
[2024-02-29] MEDS: ALBUTEROL SULF 2.5 MG/0.5ML(0.5%) NEB SOLN NEB ONE (16:24)
[2024-02-29 17:45] LABS: Basophils # (auto) 0 10 ^3/uL (0-0.2); Basophils % (auto) 0.4 % (0.0-2.0); Eosinophils # (auto) 0.6 10 ^3/uL (0-0.8); Eosinophils % (auto) 5.2 % (0.0-7.0); Hematocrit 45.2 % (41.0-53.0); Lymphocytes # (auto) 1.2 10 ^3/uL (0.4-5.4); Lymphocytes % (auto) 10.7 % (10.0-50.0); Mean Corpuscular Hemoglobin 30.1 pg (28.0-32.0); Mean Corpuscular Hgb Conc. 33.3 g/dL (32.0-36.0); Mean Corpuscular Volume 90.3 fL (80.0-100.0); Monocytes # (auto) 0.5 10 ^3/uL (0-1.3); Monocytes % (auto) 4.1 % (0.0-12.0); Neutrophils # (auto) 9.1 10 ^3/uL (1.6-8.6); Neutrophils % (auto) 79.6 % (37.0-80.0); Red Cell Distribution Width 14.3 % (11.8-14.3); White Blood Cell 11.4 10^3/uL (4.4-10.8)
[2024-02-29 18:03] LABS: Alanine Aminotransferase 18 U/L (7-40); Alkaline Phosphatase 85 U/L (46-116); Anion Gap 2 (5-15); Aspartate Aminotransferase 26 U/L (13-40); BUN/Creatinine Ratio 13.2 (10.0-20.0); Bilirubin, Total 1.1 mg/dL (0.2-1.0); Blood Urea Nitrogen 10 mg/dL (9-23); Calcium 9.8 mg/dL (8.7-10.4); Carbon Dioxide 38 mmol/L (20-30); Chloride 94 mmol/L (98-107); Glucose 134 mg/dL (74-106); Lipase 36 U/L (12-53); Potassium 4.3 mmol/L (3.5-5.1); Sodium 134 mmol/L (136-145)
[2024-02-29 18:04] LABS: Total Protein 7.1 g/dL (5.7-8.2)
[2024-02-29 20:15] VITALS: PULSE 94; RESP 28; O2SAT 99
[2024-02-29] MEDS: HYDROmorphone HCL 2 MG/ML VL/or syr IV ONE (23:41)
[2024-02-29] MEDS ORDERED: POTASSIUM CHLORIDE 20 MEQ PO SCH (23:45)
[2024-03-01] VITALS (8 sets, daily range): BP systolic 128; BP diastolic 75; PULSE 87–102; RESP 16–25; TEMP 97.4–97.5; O2SAT 98–99
[2024-03-01] MEDS: methylPREDNISolone SOD SUCC 40 MG/ML VL IV ONE (00:39)
[2024-03-01 00:41] LABS: INR 1.06 (0.9-1.15); Partial Thromboplastin Time 25.8 SEC (24.5-34.5); Prothrombin Time 11.2 sec (9.3-11.8)
[2024-03-01] MEDS: DOXYCYCLINE 100MG/250ML 250 ML IV SCH (01:42)
[2024-03-01] MEDS: LIDOCAINE 1% HCL (LOCAL ANESTH.) INJ 20ML MDV ONE (01:48)
[2024-03-01] MEDS: HYDROmorphone HCL 2 MG/ML VL/or syr IV ONE (02:33)
[2024-03-01 04:16] LABS: Basophils # (auto) 0 10 ^3/uL (0-0.2); Basophils % (auto) 0.2 % (0.0-2.0); Eosinophils # (auto) 0 10 ^3/uL (0-0.8); Hematocrit 43.3 % (41.0-53.0); Hemoglobin 14.3 g/dL (13.5-17.5); Lymphocytes # (auto) 0.4 10 ^3/uL (0.4-5.4); Lymphocytes % (auto) 6.7 % (10.0-50.0); Mean Corpuscular Hemoglobin 29.9 pg (28.0-32.0); Mean Corpuscular Hgb Conc. 32.9 g/dL (32.0-36.0); Mean Corpuscular Volume 90.9 fL (80.0-100.0); Monocytes # (auto) 0.1 10 ^3/uL (0-1.3); Monocytes % (auto) 1.1 % (0.0-12.0); Neutrophils # (auto) 5.2 10 ^3/uL (1.6-8.6); Nucleated Red Blood Cells % 0.2 %; Red Blood Cells 4.76 10^6/uL (4.5-5.90); Red Cell Distribution Width 14.3 % (11.8-14.3); White Blood Cell 5.6 10^3/uL (4.4-10.8)
[2024-03-01 04:34] LABS: Chloride 96 mmol/L (98-107); Potassium 4.5 mmol/L (3.5-5.1); Sodium 135 mmol/L (136-145)
[2024-03-01 04:35] LABS: Anion Gap 5 (5-15); Calcium 9.6 mg/dL (8.7-10.4); Carbon Dioxide 34 mmol/L (20-30)
[2024-03-01 04:40] LABS: BUN/Creatinine Ratio 16.2 (10.0-20.0); Blood Urea Nitrogen 11 mg/dL (9-23); Glucose 149 mg/dL (74-106)
[2024-03-01] MEDS: HYDROcodone-ACET 7.5/325MG TAB PO ONE (04:53)
[2024-03-01] MEDS: FUROSEMIDE 40 MG TAB PO SCH (06:05)
[2024-03-01] MEDS: LIDOCAINE 1% HCL (LOCAL ANESTH.) INJ 20ML MDV ID ONE (06:56)
[2024-03-01 08:03] LABS: Phosphorus 4.6 mg/dL (2.4-5.1)
[2024-03-01 09:17] LABS: Magnesium 2.3 mg/dL (1.6-2.6)
[2024-03-01] MEDS: POTASSIUM CHL 20 Meq TABLET PO SCH (10:05)
[2024-03-01] MEDS: methylPREDNISolone SOD SUCC 40 MG/ML VL IV SCH (10:05)
[2024-03-01] MEDS: PANTOPRAZOLE 40 MG TAB PO SCH (10:05)
[2024-03-01] MEDS: ASPirin-EC 81 mg tab PO SCH (10:05)
[2024-03-01] MEDS: ENOXAPARIN SOD 40 MG/0.4 ML SYRINGE SC SCH (10:07)
[2024-03-01] MEDS: MORPHINE SULFATE INJ 2 MG/ml SYRG IV PRN (10:08)
[2024-03-01] MEDS ORDERED: TRAZ-227 PO (15:13)
[2024-03-01] MEDS: ATORVASTATIN 20 MG TAB PO SCH (23:14)
[2024-03-02] VITALS (19 sets, daily range): BP systolic 101–126; BP diastolic 54–94; PULSE 69–85; RESP 16–24; TEMP 97.6–98.5; O2SAT 95–100
[2024-03-02 00:50] LABS: Urine Bacteria None Seen /hpf (None Seen)
[2024-03-02 01:08] LABS: Urine Blood Negative /uL (Negative); Urine Clarity Clear (Clear); Urine Protein, UAD Negative (Negative); Urine Specific Gravity 1.008 (1.001-1.035); Urine Urobilinogen Normal (Negative); Urine WBC <1 /hpf (0 - 3)
[2024-03-02 01:15] LABS: Urine Color STRAW (Yellow)
[2024-03-02 01:39] LABS: Amphetamine Screen, Urine Neg (NEGATIVE); Barbiturate Scree,Urine Neg (NEGATIVE); Benzodiazephine Screen, Urine Neg (NEGATIVE); Cannabinoid Screen, Urine Neg (NEGATIVE); Cocaine Screen, Urine Neg (NEGATIVE); Opiate Scree,Urine Neg (NEGATIVE); Phencyclidine Screen, Urine Neg (NEGATIVE)
[2024-03-02] MEDS: IPRATROPIUM BROM 0.5 MG/2.5ML INH SOL NEB PRN (05:42)
[2024-03-02] MEDS: ALBUTEROL SULF 2.5 MG/0.5ML(0.5%) NEB SOLN NEB PRN ×2 (05:42→13:32)
[2024-03-02 06:12] LABS: Basophils # (auto) 0 10 ^3/uL (0-0.2); Eosinophils # (auto) 0 10 ^3/uL (0-0.8); Hemoglobin 14.4 g/dL (13.5-17.5); Lymphocytes # (auto) 0.6 10 ^3/uL (0.4-5.4); Lymphocytes % (auto) 6.3 % (10.0-50.0); Mean Corpuscular Hgb Conc. 33.5 g/dL (32.0-36.0); Mean Corpuscular Volume 89.7 fL (80.0-100.0); Monocytes # (auto) 0.2 10 ^3/uL (0-1.3); Monocytes % (auto) 2.4 % (0.0-12.0); Neutrophils # (auto) 8.9 10 ^3/uL (1.6-8.6); Neutrophils % (auto) 91.3 % (37.0-80.0); Nucleated Red Blood Cells % 0.2 %; Red Blood Cells 4.79 10^6/uL (4.5-5.90); Red Cell Distribution Width 13.4 % (11.8-14.3); White Blood Cell 9.7 10^3/uL (4.4-10.8)
[2024-03-02 06:18] LABS: Alanine Aminotransferase 13 U/L (7-40); Albumin 3.8 g/dL (3.2-4.8); Alkaline Phosphatase 73 U/L (46-116); Aspartate Aminotransferase 19 U/L (13-40); BUN/Creatinine Ratio 18.6 (10.0-20.0); Blood Urea Nitrogen 13 mg/dL (9-23); Calcium 9.4 mg/dL (8.5-10.1); Chloride 89 mmol/L (98-107); Glucose 148 mg/dL (74-106); Potassium 4.1 mmol/L (3.5-5.1); Sodium 133 mmol/L (136-145)
[2024-03-02 06:19] LABS: Bilirubin, Total 0.9 mg/dL (0.2-1.0); Phosphorus 3.7 mg/dL (2.4-5.1); Total Protein 6.5 g/dL (5.7-8.2)
[2024-03-02 06:53] LABS: Anion Gap 3.99999 (5-15); Carbon Dioxide > 40 mmol/L (20-30)
[2024-03-02 06:54] LABS: Magnesium 2.2 mg/dL (1.6-2.6)
[2024-03-02] MEDS: ERGOCALCIFEROL 50,000 UNIT(1.25MG) CAP PO SCH (12:07)
[2024-03-02] MEDS: FUROSEMIDE 40 MG TAB PO SCH (21:51)
[2024-03-03] VITALS (12 sets, daily range): BP systolic 103–119; BP diastolic 60–72; PULSE 60–89; RESP 18–22; TEMP 97.3–98.5; O2SAT 96–99
[2024-03-03 06:33] LABS: Chloride 87 mmol/L (98-107); Potassium 4.4 mmol/L (3.5-5.1); Sodium 131 mmol/L (136-145)
[2024-03-03 06:34] LABS: Calcium 9.9 mg/dL (8.7-10.4)
[2024-03-03 06:39] LABS: BUN/Creatinine Ratio 21.7 (10.0-20.0); Blood Urea Nitrogen 15 mg/dL (9-23); Glucose 146 mg/dL (74-106)
[2024-03-03 06:57] LABS: Basophils # (auto) 0 10 ^3/uL (0-0.2); Eosinophils # (auto) 0 10 ^3/uL (0-0.8); Hematocrit 45.8 % (41.0-53.0); Hemoglobin 15.4 g/dL (13.5-17.5); Lymphocytes # (auto) 0.8 10 ^3/uL (0.4-5.4); Lymphocytes % (auto) 8.6 % (10.0-50.0); Mean Corpuscular Hgb Conc. 33.7 g/dL (32.0-36.0); Mean Corpuscular Volume 89.2 fL (80.0-100.0); Monocytes # (auto) 0.5 10 ^3/uL (0-1.3); Monocytes % (auto) 5.7 % (0.0-12.0); Neutrophils # (auto) 8.3 10 ^3/uL (1.6-8.6); Neutrophils % (auto) 85.7 % (37.0-80.0); Nucleated Red Blood Cells % 0.3 %; Red Blood Cells 5.14 10^6/uL (4.5-5.90); Red Cell Distribution Width 13.7 % (11.8-14.3); White Blood Cell 9.7 10^3/uL (4.4-10.8)
[2024-03-03 07:02] LABS: Anion Gap 3.99999 (5-15)
[2024-03-03 07:04] LABS: Carbon Dioxide > 40 mmol/L (20-30)
[2024-03-03] MEDS: LACTULOSE 20Gm/30ML SOLN PO ONE (11:09)
[2024-03-03] MEDS: LACTULOSE 20Gm/30ML SOLN PO SCH (21:21)
[2024-03-04] VITALS (12 sets, daily range): BP systolic 100–114; BP diastolic 52–70; PULSE 78–96; RESP 16–22; TEMP 97.4–97.8; O2SAT 96–99
[2024-03-04 06:56] LABS: Basophils # (auto) 0 10 ^3/uL (0-0.2); Eosinophils # (auto) 0 10 ^3/uL (0-0.8); Hemoglobin 15.3 g/dL (13.5-17.5); Lymphocytes # (auto) 1.5 10 ^3/uL (0.4-5.4); Lymphocytes % (auto) 11.3 % (10.0-50.0); Mean Corpuscular Hemoglobin 29.5 pg (28.0-32.0); Mean Corpuscular Hgb Conc. 33.3 g/dL (32.0-36.0); Mean Corpuscular Volume 88.5 fL (80.0-100.0); Monocytes # (auto) 0.8 10 ^3/uL (0-1.3); Monocytes % (auto) 6.3 % (0.0-12.0); Neutrophils # (auto) 10.7 10 ^3/uL (1.6-8.6); Neutrophils % (auto) 82.4 % (37.0-80.0); Nucleated Red Blood Cells % 0.4 %; Red Cell Distribution Width 13.8 % (11.8-14.3); White Blood Cell 12.9 10^3/uL (4.4-10.8)
[2024-03-04 07:10] LABS: Alanine Aminotransferase 21 U/L (7-40); Albumin 3.8 g/dL (3.2-4.8); Alkaline Phosphatase 74 U/L (46-116); Aspartate Aminotransferase 17 U/L (13-40); Bilirubin, Total 0.9 mg/dL (0.2-1.0); Blood Urea Nitrogen 13 mg/dL (9-23); Calcium 9.9 mg/dL (8.7-10.4); Chloride 87 mmol/L (98-107); Glucose 136 mg/dL (74-106); Potassium 4.2 mmol/L (3.5-5.1); Sodium 133 mmol/L (136-145); Total Protein 6.5 g/dL (5.7-8.2)
[2024-03-04 07:28] LABS: Anion Gap 5.99999 (5-15); Carbon Dioxide > 40 mmol/L (20-30)
[2024-03-04 08:00] LABS: BUN/Creatinine Ratio 21.7 (10.0-20.0)
[2024-03-04] MEDS: FLEET ENEMA(ADULT) 135 ML PR ONE (14:22)
[2024-03-05] VITALS (11 sets, daily range): BP systolic 98–112; BP diastolic 64–89; PULSE 74–86; RESP 16–20; TEMP 97–97.9; O2SAT 97–99
[2024-03-05 06:34] LABS: Basophils # (auto) 0 10 ^3/uL (0-0.2); Basophils % (auto) 0.1 % (0.0-2.0); Eosinophils # (auto) 0 10 ^3/uL (0-0.8); Hematocrit 47.8 % (41.0-53.0); Hemoglobin 15.8 g/dL (13.5-17.5); Lymphocytes # (auto) 1.1 10 ^3/uL (0.4-5.4); Lymphocytes % (auto) 9.7 % (10.0-50.0); Mean Corpuscular Hemoglobin 29.6 pg (28.0-32.0); Mean Corpuscular Volume 89.7 fL (80.0-100.0); Monocytes # (auto) 0.5 10 ^3/uL (0-1.3); Monocytes % (auto) 4.4 % (0.0-12.0); Neutrophils # (auto) 9.9 10 ^3/uL (1.6-8.6); Neutrophils % (auto) 85.8 % (37.0-80.0); Nucleated Red Blood Cells % 0.2 %; Red Blood Cells 5.33 10^6/uL (4.5-5.90); Red Cell Distribution Width 13.8 % (11.8-14.3); White Blood Cell 11.5 10^3/uL (4.4-10.8)
[2024-03-05 06:49] LABS: Alanine Aminotransferase 20 U/L (7-40); Alkaline Phosphatase 74 U/L (46-116); Anion Gap 4 (5-15); Aspartate Aminotransferase 17 U/L (13-40); BUN/Creatinine Ratio 18.2 (10.0-20.0); Blood Urea Nitrogen 10 mg/dL (9-23); Calcium 9.9 mg/dL (8.7-10.4); Carbon Dioxide 37 mmol/L (20-30); Chloride 90 mmol/L (98-107); Glucose 138 mg/dL (74-106); Potassium 4.7 mmol/L (3.5-5.1); Sodium 131 mmol/L (136-145)
[2024-03-05 06:50] LABS: Albumin 3.6 g/dL (3.2-4.8); Total Protein 6.4 g/dL (5.7-8.2)
[2024-03-05] MEDS: MELATONIN 5 MG TAB PO ONE (21:20)
[2024-03-06] VITALS (16 sets, daily range): BP systolic 99–117; BP diastolic 59–70; PULSE 75–88; RESP 16–24; TEMP 97.6–98.1; O2SAT 94–99
[2024-03-06 06:16] LABS: Basophils # (auto) 0 10 ^3/uL (0-0.2); Eosinophils # (auto) 0 10 ^3/uL (0-0.8); Hematocrit 44.9 % (41.0-53.0); Hemoglobin 15.3 g/dL (13.5-17.5); Lymphocytes % (auto) 8.8 % (10.0-50.0); Mean Corpuscular Hemoglobin 30.2 pg (28.0-32.0); Mean Corpuscular Hgb Conc. 34.1 g/dL (32.0-36.0); Mean Corpuscular Volume 88.6 fL (80.0-100.0); Monocytes # (auto) 0.4 10 ^3/uL (0-1.3); Monocytes % (auto) 3.9 % (0.0-12.0); Neutrophils # (auto) 10.2 10 ^3/uL (1.6-8.6); Neutrophils % (auto) 87.3 % (37.0-80.0); Red Blood Cells 5.07 10^6/uL (4.5-5.90); White Blood Cell 11.6 10^3/uL (4.4-10.8)
[2024-03-06 06:25] LABS: Chloride 89 mmol/L (98-107); Sodium 133 mmol/L (136-145)
[2024-03-06 06:26] LABS: Calcium 9.8 mg/dL (8.5-10.1)
[2024-03-06 06:31] LABS: BUN/Creatinine Ratio 22.1 (10.0-20.0); Blood Urea Nitrogen 15 mg/dL (9-23); Glucose 149 mg/dL (74-106)
[2024-03-06 06:55] LABS: Anion Gap 3.99999 (5-15); Carbon Dioxide > 40 mmol/L (20-30)
[2024-03-06] MEDS: ACETAMINOPHEN 500 MG TAB PO PRN (18:03)
[2024-03-06] MEDS: MAALOX PLUS or MAALOX 30 ML PO ONE (18:28)
[2024-03-06] MEDS: MELATONIN 5 MG TAB PO SCH (21:03)
[2024-03-07] VITALS (13 sets, daily range): BP systolic 98–116; BP diastolic 53–74; PULSE 78–89; RESP 18–26; TEMP 97.1–98.1; O2SAT 93–100
[2024-03-07] MEDS: traZODone HCL 50 MG TAB PO SCH (21:30)
[2024-03-08] VITALS (11 sets, daily range): BP systolic 90–115; BP diastolic 53–71; PULSE 70–92; RESP 19–24; TEMP 97.4–98.4; O2SAT 96–99
[2024-03-08] MEDS: methylPREDNISolone SOD SUCC 40 MG/ML VL IV SCH (09:44)
[2024-03-08 10:06] LABS: Basophils # (auto) 0 10 ^3/uL (0-0.2); Basophils % (auto) 0.3 % (0.0-2.0); Eosinophils # (auto) 0 10 ^3/uL (0-0.8); Hematocrit 41.9 % (41.0-53.0); Hemoglobin 14.1 g/dL (13.5-17.5); Lymphocytes % (auto) 7.7 % (10.0-50.0); Mean Corpuscular Hemoglobin 30.2 pg (28.0-32.0); Mean Corpuscular Hgb Conc. 33.6 g/dL (32.0-36.0); Mean Corpuscular Volume 89.9 fL (80.0-100.0); Monocytes % (auto) 7.4 % (0.0-12.0); Neutrophils # (auto) 11.5 10 ^3/uL (1.6-8.6); Neutrophils % (auto) 84.6 % (37.0-80.0); Red Blood Cells 4.66 10^6/uL (4.5-5.90); Red Cell Distribution Width 13.6 % (11.8-14.3); White Blood Cell 13.6 10^3/uL (4.4-10.8)
[2024-03-08 10:18] LABS: Alanine Aminotransferase 25 U/L (7-40); Alkaline Phosphatase 67 U/L (46-116); Anion Gap 1 (5-15); Aspartate Aminotransferase 20 U/L (13-40); BUN/Creatinine Ratio 23.8 (10.0-20.0); Blood Urea Nitrogen 15 mg/dL (9-23); Calcium 9.4 mg/dL (8.5-10.1); Carbon Dioxide 39 mmol/L (20-30); Chloride 95 mmol/L (98-107); Glucose 161 mg/dL (74-106); Potassium 4.8 mmol/L (3.5-5.1); Sodium 135 mmol/L (136-145)
[2024-03-08 10:19] LABS: Albumin 3.3 g/dL (3.2-4.8); Bilirubin, Total 0.7 mg/dL (0.2-1.0); Total Protein 5.6 g/dL (5.7-8.2)
[2024-03-09] VITALS (16 sets, daily range): BP systolic 95–120; BP diastolic 45–74; PULSE 68–88; RESP 14–22; TEMP 97–98; O2SAT 95–100
[2024-03-09 05:17] LABS: Basophils # (auto) 0 10 ^3/uL (0-0.2); Basophils % (auto) 0.1 % (0.0-2.0); Eosinophils # (auto) 0 10 ^3/uL (0-0.8); Eosinophils % (auto) 0.2 % (0.0-7.0); Hematocrit 40.5 % (41.0-53.0); Hemoglobin 13.6 g/dL (13.5-17.5); Lymphocytes # (auto) 2.3 10 ^3/uL (0.4-5.4); Lymphocytes % (auto) 15.7 % (10.0-50.0); Mean Corpuscular Hemoglobin 29.7 pg (28.0-32.0); Mean Corpuscular Hgb Conc. 33.5 g/dL (32.0-36.0); Mean Corpuscular Volume 88.7 fL (80.0-100.0); Monocytes # (auto) 1.2 10 ^3/uL (0-1.3); Neutrophils # (auto) 11.1 10 ^3/uL (1.6-8.6); Nucleated Red Blood Cells % 0.4 %; Red Blood Cells 4.56 10^6/uL (4.5-5.90); Red Cell Distribution Width 13.8 % (11.8-14.3); White Blood Cell 14.6 10^3/uL (4.4-10.8)
[2024-03-09 05:30] LABS: Chloride 93 mmol/L (98-107); Potassium 4.6 mmol/L (3.5-5.1); Sodium 134 mmol/L (136-145)
[2024-03-09 05:32] LABS: Calcium 9.5 mg/dL (8.5-10.1)
[2024-03-09 05:36] LABS: BUN/Creatinine Ratio 27.5 (10.0-20.0); Blood Urea Nitrogen 14 mg/dL (9-23); Glucose 118 mg/dL (74-106)
[2024-03-09 05:39] LABS: Anion Gap 0.99999 (5-15)
[2024-03-09 05:40] LABS: Carbon Dioxide > 40 mmol/L (20-30)
[2024-03-10] VITALS (11 sets, daily range): BP systolic 108–135; BP diastolic 55–76; PULSE 65–87; RESP 16–24; TEMP 97.1–97.9; O2SAT 94–100
[2024-03-10 05:41] LABS: Basophils # (auto) 0 10 ^3/uL (0-0.2); Basophils % (auto) 0.4 % (0.0-2.0); Eosinophils # (auto) 0 10 ^3/uL (0-0.8); Eosinophils % (auto) 0.2 % (0.0-7.0); Hematocrit 41.1 % (41.0-53.0); Hemoglobin 13.7 g/dL (13.5-17.5); Lymphocytes # (auto) 1.7 10 ^3/uL (0.4-5.4); Lymphocytes % (auto) 13.8 % (10.0-50.0); Mean Corpuscular Hemoglobin 29.8 pg (28.0-32.0); Mean Corpuscular Hgb Conc. 33.4 g/dL (32.0-36.0); Mean Corpuscular Volume 89.3 fL (80.0-100.0); Monocytes % (auto) 8.1 % (0.0-12.0); Neutrophils # (auto) 9.6 10 ^3/uL (1.6-8.6); Neutrophils % (auto) 77.5 % (37.0-80.0); Nucleated Red Blood Cells % 0.2 %; Red Cell Distribution Width 13.7 % (11.8-14.3); White Blood Cell 12.4 10^3/uL (4.4-10.8)
[2024-03-10 05:56] LABS: Chloride 93 mmol/L (98-107); Potassium 4.7 mmol/L (3.5-5.1); Sodium 135 mmol/L (136-145)
[2024-03-10 05:57] LABS: Calcium 9.4 mg/dL (8.5-10.1)
[2024-03-10 06:02] LABS: BUN/Creatinine Ratio 19.4 (10.0-20.0); Blood Urea Nitrogen 12 mg/dL (9-23); Glucose 97 mg/dL (74-106)
[2024-03-10 06:23] LABS: Anion Gap 1.99999 (5-15)
[2024-03-10 06:26] LABS: Carbon Dioxide > 40 mmol/L (20-30)
[2024-03-11] VITALS (13 sets, daily range): BP systolic 91–119; BP diastolic 57–66; PULSE 72–82; RESP 18–20; TEMP 97.7–98.8; O2SAT 92–100
[2024-03-12] VITALS (8 sets, daily range): BP systolic 94–102; BP diastolic 52–59; PULSE 75–84; RESP 17–18; TEMP 36.4; O2SAT 95–98
[2024-03-12 06:57] LABS: Basophils # (auto) 0 10 ^3/uL (0-0.2); Basophils % (auto) 0.1 % (0.0-2.0); Eosinophils # (auto) 0 10 ^3/uL (0-0.8); Eosinophils % (auto) 0.2 % (0.0-7.0); Hematocrit 39.5 % (41.0-53.0); Hemoglobin 13.2 g/dL (13.5-17.5); Lymphocytes # (auto) 1.9 10 ^3/uL (0.4-5.4); Lymphocytes % (auto) 14.6 % (10.0-50.0); Mean Corpuscular Hgb Conc. 33.5 g/dL (32.0-36.0); Mean Corpuscular Volume 89.8 fL (80.0-100.0); Monocytes # (auto) 0.9 10 ^3/uL (0-1.3); Monocytes % (auto) 7.1 % (0.0-12.0); Neutrophils # (auto) 10.2 10 ^3/uL (1.6-8.6); Nucleated Red Blood Cells % 0.1 %; Red Cell Distribution Width 13.7 % (11.8-14.3)
[2024-03-12 06:58] LABS: Alanine Aminotransferase 24 U/L (7-40); Alkaline Phosphatase 63 U/L (46-116); Anion Gap 2 (5-15); BUN/Creatinine Ratio 25.9 (10.0-20.0); Blood Urea Nitrogen 15 mg/dL (9-23); Calcium 9.2 mg/dL (8.5-10.1); Carbon Dioxide 39 mmol/L (20-30); Chloride 93 mmol/L (98-107); Glucose 148 mg/dL (74-106); Potassium 4.4 mmol/L (3.5-5.1); Sodium 134 mmol/L (136-145)
[2024-03-12 06:59] LABS: Albumin 3.3 g/dL (3.2-4.8); Aspartate Aminotransferase 18 U/L (13-40); Bilirubin, Total 0.6 mg/dL (0.2-1.0); Total Protein 5.4 g/dL (5.7-8.2)
== END 2024-03-12 15:42 | disposition hospice, home (50) | DRG 199 ==
LOC: ER 14:56 → EDBD 14:56 → EDUNIT# 14:56 → TELE 23:39 → TELE-WESTW 03-01 22:56 → WEST WING 03-04 20:00
PROVIDERS: ADMIT Internal Medicine; ATTEND Internal Medicine
DX: J93.83 Other pneumothorax (principal); J18.9 Pneumonia, unspecified organism; J96.21 Acute and chronic respiratory failure with hypoxia; I50.42 Chronic combined systolic (congestive) and diastolic (congestive) heart failure; E78.5 Hyperlipidemia, unspecified; I11.0 Hypertensive heart disease with heart failure; K21.9 Gastro-esophageal reflux disease without esophagitis; I27.20 Pulmonary hypertension, unspecified; J98.2 Interstitial emphysema; K59.00 Constipation, unspecified; I73.9 Peripheral vascular disease, unspecified; Z86.73 Personal history of transient ischemic attack (TIA), and cerebral infarction without residual deficits; Z88.1 Allergy status to other antibiotic agents; Z87.891 Personal history of nicotine dependence; Z90.49 Acquired absence of other specified parts of digestive tract; Z80.9 Family history of malignant neoplasm, unspecified; Z82.3 Family history of stroke; Z99.81 Dependence on supplemental oxygen
CPT/HCPCS: 36415; 71045; 71250; 80048; 80053; 80061; 80307; 81001; 82306; 82607; 83036; 83605; 83690; 83735; 83880; 84100; 84443; 84484; 85025; 85610; 85730; 87040; 87081; 94640; 96372; 97110; 97116; 97163; 97530; G0378; J1100; J2001; J3490